=== PATIENT | male | born 1955 | race Caucasian/White ===

== ENCOUNTER → 2019-12-10 08:45 | Outpatient (BNVA) | payer OTHER, SELFPAY | PROVIDERS: Referring Provider Dermatology; Visit Provider Dermatology | DX: B07.8 Other viral warts (principal); D22.9 Melanocytic nevi, unspecified; D23.9 Other benign neoplasm of skin, unspecified | CPT/HCPCS: 17000; 99203 ==

== ENCOUNTER 2020-09-05 02:49 | Inpatient (IN) | payer OTHER, MEDICARE, SELFPAY ==
[2020-09-05] VITALS (79 sets, daily range): BP systolic 100–158; BP diastolic 62–127; PULSE 58–92; RESP 12–25; TEMP 36.7–37.1; O2SAT 89–100; BMI 28.0
--- NOTE | 2020-09-05 03:28 | XRR_ITS ---
PROCEDURE INFORMATION: Exam: XR Chest Exam date and time: 09/05/2020 3:30 AM Age: 65 years old Clinical indication: Chest pressure; Patient HX: Upper back pain with radiation into chest. ; Additional info: Chest pain TECHNIQUE: Imaging protocol: XR of the chest. Views: 1 view. COMPARISON: No relevant prior studies available. FINDINGS: Lungs: There are increased interstitial opacities present in the lower hemithoraces bilaterally and mild indistinctness of the pulmonary vasculature seen, findings that could represent pulmonary edema. Superimposed bilateral basilar interstitial pneumonia cannot be entirely excluded. Pleural spaces: Unremarkable. No pleural effusion. No pneumothorax. Heart/Mediastinum: Unremarkable. No cardiomegaly. Bones/joints: Unremarkable. XR/XR chest 1V portable [id number] IMPRESSION: Indistinctness of the pulmonary vasculature with increased interstitial opacities in the lower hemithoraces, findings that may represent pulmonary edema. Superimposed interstitial pneumonia cannot be entirely excluded. A
--- NOTE | 2020-09-05 03:28 | ECG_ITS ---
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 Measurements Intervals [place] Rate: 73 P: 64 [place]: 143 QRS: 9 QRSD: 88 T: 62 QT: 377 QTc: 417 Interpretive Statements SINUS RHYTHM WITH MARKED SINUS ARRHYTHMIA LOW QRS VOLTAGE IN PRECORDIAL LEADS [QRS DEFLECTION < 1.0 mV IN CHEST LEADS] POSSIBLE RIGHT VENTRICULAR CONDUCTION DELAY [RSR (QR) IN V1/V2] POSSIBLE SEPTAL MYOCARDIAL INFARCTION , OF INDETERMINATE AGE [30 ms Q WAVE IN V1/V2] No previous ECG available for comparison Electronically Signed On 09-05-2020 19:15:08 CDT by Khris Yen M.D. [id number] f
--- NOTE | 2020-09-05 03:42 | ED_ITS ---
HPI - Back Pain/Injury General: Chief Complaint: Back Pain/Injury Stated Complaint: UPPER BACK PAIN Time Seen by Provider: 09/05/20 03:20 Source: patient Mode of arrival: ambulatory History of Present Illness: HPI Narrative: 65-year-old male woke up at 2am in a cold sweat, nauseous, with pain in the middle of his back, between his shoulder blades. No shortness of breath. Pain is constant, deep, not affected by movement or breathing. Back his observed him to be diaphoretic, pale. She gave him a dose of Tylenol. He has never had symptoms like this in the past. Denies any history of hypertension, CAD, CVA. Denies any family history of CAD. Currently rates pain as 7 out of 10, MD elicited complaint: back pain Onset (ago): hour(s) Timing: constant Associated symptoms: Reports chills and nausea; Deny abdominal pain, dysuria, syncope or vomiting Review of Systems General: Reports: 10 or more systems reviewed and unremarkable except in HPI and below Const: Reports: chills and diaphoresis Eyes: Denies: change in vision or blurry vision Card: Denies: chest pain, irregular heart rhythm, edema, lightheadedness or syncope Resp: Denies: dyspnea, productive cough or non-productive cough GI: Reports: nausea; Denies: abdominal pain or vomiting : Denies: flank pain, difficulty urinating or dysuria Musc: Reports: back pain; Denies: extremity pain or extremity swelling Skin/Breast: Denies: rash, pruritus or erythema Neuro: Denies: headache(s) or numbness in extremities PFSH ED PFSH: Medical History No pertinent family history Surgical History History of knee surgery Social History Smoking and tobacco status: never smoked Alcohol intake: never History of recent travel: No Physical Exam Const: COMMON NORMALS: average body habitus, patient oriented x3 and alert GENERAL APPEARANCE: well developed, ill appearing and diaphoretic; not in distress and no odor of alcohol detected ORIENTATION/CONSCIOUSNESS: Yes awake, Yes oriented to person and Yes oriented to place HENMT: COMMON NORMALS: normocephalic and atraumatic HEAD & SCALP: normocephalic and atraumatic Neck/C-Spine: COMMON NORMALS: full ROM, no lymphadenopathy and no JVD Resp: COMMON NORMALS: normal respiratory effort; negative for No use of accessory muscles EFFORT & INSPECTION: No abnormal respiratory pattern and No tachypneic Cardio: COMMON NORMALS: no JVD GI: COMMON NORMALS: Normal to inspection, nondistended, normoactive bowel sounds present, Soft to palpation, non-tender and No hepatosplenomegaly present PALPATION: Yes Soft to palpation and Yes No hepatosplenomegaly present : COMMON NORMALS: Yes no CVA tenderness BLADDER/KIDNEY EXAM: Yes no CVA tenderness Back/Pelvis: COMMON NORMALS: no CVA tenderness and no thoracic nor lumbar tenderness Extremity: GENERAL: No cyanosis, No edema, No mottling and Yes pallor Neuro: COMMON NORMALS: patient oriented x3 SENSORIUM/ORIENTATION: Yes alert, Yes oriented to person and Yes oriented to place Skin: COMMON NORMALS: no rashes or lesions noted, no wounds and turgor normal GENERAL SKIN EXAM: no rashes or lesions noted and turgor normal Course Vital Signs: Vital signs: Vital Signs Temperature 98.0 F 09/05/20 02:55 Pulse Rate 82 09/05/20 06:27 Respiratory Rate 16 09/05/20 06:27 Blood Pressure 124/80 09/05/20 06:27 Pulse Oximetry 97 09/05/20 06:27 MDM - Back Pain/Injury MDM Narrative: Medical decision making narrative: 65-year-old male woke up overnight with upper back pain, diaphoresis, nausea. Shortly after arriving, pain started radiating to the front of his chest as well. Primary differential includes aortic dissection, STEMI, ACS, ST depression in II, AVF, V5,V6- slightly improved on repeat EKG at 15min no acute ST elevations. central vasc congestion on xray Give ASA 324, morphine, zofran CTA chest: Negative for dissection or acute PE Initial troponin 26, 2-hour repeat pending HEART score=7, high risk- will recommend admission for further workup. Discussed case with Dr. Stallworth, hospitalist, he accepts the admission. Start Lovenox, 1 mg/kg SC Differential Diagnosis: Differential diagnosis back pain/injury: Likely thoracic back pain Lab Data: Labs: Lab Results 09/05/20 09/05/20 09/05/20 Range/Units 03:42 03:42 03:42 WBC 6.0 (4.0-10.0) 10^3/ uL RBC 5.37 H (4.1-5.3) 10^6/u L Hgb 16.1 (11.7-16.6) g/dL Hct 47.8 (42.0-52.0) % MCV 89.0 (80-94) fL MCH 30.0 (28.0-34.0) pg MCHC 33.7 (30.0-36.0) g/dL RDW 12.4 (12.1-15.1) % Plt Count 172 (130-400) 10^3/c mm MPV 9.9 (7.4-10.4) fL Neut % (Auto) 53.0 % Lymph % (Auto) 36.9 % [place] % (Auto) 7.0 % Eos % (Auto) 2.2 % Baso % (Auto) 0.7 % Neut # (Auto) 3.21 (1.8-7.7) 10^3/u L Lymph # (Auto) 2.2 (0.8-4.8) 10^3/u L [place] # (Auto) 0.4 (0.2-0.9) 10^3/u L Eos # (Auto) 0.1 (0.0-0.8) 10^3/u L Baso # (Auto) 0.0 (0.0-0.1) 10^3/u L Nucleated RBC % (a uto) 0 % Nucleated RBCs # 0.0 /100WBC D-Dimer <= 0.27 (0-0.59) ug/mIFE U Sodium 136 (136-145) mmol/L Potassium 3.9 (3.5-5.1) mmol/L Chloride 99 (98-107) mmol/L Carbon Dioxide 27 (22-29) mmol/L Anion Gap 13.9 (5-19) BUN 14 (8-23) mg/dL Creatinine 1.0 (0.7-1.2) mg/dL GFR Calculation 75.0 L (90-130) mL/min Glucose 143 H (65-115) mg/dL Calculated Osmolal ity 285 (285-295) mOsm/k g Calcium 8.8 (8.5-10.5) mg/dL Total Bilirubin 0.2 (0.15-1.2) mg/dL AST 30 (0-40) U/L ALT 37 (0-41) U/L Alkaline Phosphata se 91 (40-130) IU/L Troponin T Baselin e (0-15) ng/L Troponin T 120 Min [place] (0-15) ng/L Delta Troponin T (0-10) ABS# NT-Pro-B Natriuret Pep 61 (0-125) pg/mL Total Protein 6.9 (6.6-8.7) g/dL Albumin 4.5 (3.5-5.2) g/dL Globulin 2.4 (1.3-4.6) g/dL Urine Color (Yellow) Urine Appearance (CLEAR) Urine pH (5-7) Ur Specific Gravit y (1.005-1.030) Urine Protein (Negative) Urine Glucose (UA) (Normal) Urine Ketones (Negative) Urine Blood (Negative) Urine Nitrate (Negative) Urine Bilirubin (Negative) Prot Sulfosalicyli c Acd (Negative) Urine Urobilinogen (Negative) mg/dL Ur Leukocyte Starla ase (Negative) 09/05/20 09/05/20 09/05/20 Range/Units 03:42 04:56 05:28 WBC (4.0-10.0) 10^3/ uL RBC (4.1-5.3) 10^6/u L Hgb (11.7-16.6) g/dL Hct (42.0-52.0) % MCV (80-94) fL MCH (28.0-34.0) pg MCHC (30.0-36.0) g/dL RDW (12.1-15.1) % Plt Count (130-400) 10^3/c mm MPV (7.4-10.4) fL Neut % (Auto) % Lymph % (Auto) % [place] % (Auto) % Eos % (Auto) % Baso % (Auto) % Neut # (Auto) (1.8-7.7) 10^3/u L Lymph # (Auto) (0.8-4.8) 10^3/u L [place] # (Auto) (0.2-0.9) 10^3/u L Eos # (Auto) (0.0-0.8) 10^3/u L Baso # (Auto) (0.0-0.1) 10^3/u L Nucleated RBC % (a uto) % Nucleated RBCs # /100WBC D-Dimer (0-0.59) ug/mIFE U Sodium (136-145) mmol/L Potassium (3.5-5.1) mmol/L Chloride (98-107) mmol/L Carbon Dioxide (22-29) mmol/L Anion Gap (5-19) BUN (8-23) mg/dL Creatinine (0.7-1.2) mg/dL GFR Calculation (90-130) mL/min Glucose (65-115) mg/dL Calculated Osmolal ity (285-295) mOsm/k g Calcium (8.5-10.5) mg/dL Total Bilirubin (0.15-1.2) mg/dL AST (0-40) U/L ALT (0-41) U/L Alkaline Phosphata se (40-130) IU/L Troponin T Baselin e 26 H (0-15) ng/L Troponin T 120 Min [place] 46.60 H (0-15) ng/L Delta Troponin T 20.60 H* (0-10) ABS# NT-Pro-B Natriuret Pep (0-125) pg/mL Total Protein (6.6-8.7) g/dL Albumin (3.5-5.2) g/dL Globulin (1.3-4.6) g/dL Urine Color Straw (Yellow) Urine Appearance Clear (CLEAR) Urine pH 8 H (5-7) Ur Specific Gravit y 1.005 (1.005-1.030) Urine Protein Neg (Negative) Urine Glucose (UA) Norm (Normal) Urine Ketones Negative (Negative) Urine Blood Neg (Negative) Urine Nitrate Negative (Negative) Urine Bilirubin Neg (Negative) Prot Sulfosalicyli c Acd Negative (Negative) Urine Urobilinogen Norm (Negative) mg/dL Ur Leukocyte Starla ase Negative (Negative) Discharge Plan Discharge Patient Disposition: Admitted As Inpatient Admit Provider: Jamia Stallworth Clinical Impression: Thoracic back pain, Chest pain, Abnormal ECG, Elevated troponin I measurement Condition: Stable Coding Level of Care Code ED Masking Machine Feeder for Chg Fwd Exam Comprehensive
[2020-09-05] MEDS: aspirin 81 mg Chew Tablet 324 MG PO (03:47)
[2020-09-05 03:48] LABS: Basophils % 0.7 %; Eosinophils # 0.1 10^3/uL (0.0-0.8); Eosinophils % 2.2 %; Hematocrit 47.8 % (42.0-52.0); Hemoglobin 16.1 g/dL (11.7-16.6); Lymphocytes # 2.2 10^3/uL (0.8-4.8); Lymphocytes % 36.9 %; Mean Corpuscular HGB Conc 33.7 g/dL (30.0-36.0); Mean Platelet Volume 9.9 fL (7.4-10.4); Monocytes # 0.4 10^3/uL (0.2-0.9); Neutrophils # 3.21 10^3/uL (1.8-7.7); Nucleated Red Blood Cells % 0 %; Platelet Count 172 10^3/cmm (130-400); Red Blood Count 5.37 10^6/uL (4.1-5.3); Red Cell Distribution Width 12.4 % (12.1-15.1)
--- NOTE | 2020-09-05 03:58 | CTR_ITS ---
PROCEDURE INFORMATION: Exam: CTA Chest With Contrast Exam date and time: 09/05/2020 4:00 AM Age: 65 years old Clinical indication: Chest pain; Patient HX: Upper back pain with anterior radiation. ; Additional info: Upper back pain, R/O dissection TECHNIQUE: Imaging protocol: Computed tomographic angiography of the chest with contrast. 3D rendering (Not supervised by radiologist): MIP and/or 3D reconstructed images were created by the technologist. Radiation optimization: All CT scans at this facility use at least one of these dose optimization techniques: automated exposure control; mA and/or kV adjustment per patient size (includes targeted exams where dose is matched to clinical indication); or iterative reconstruction. Contrast material: OMNI 350; Contrast volume: 95 ml; Contrast route: INTRAVENOUS (IV); COMPARISON: CR (CHEST, ) 09/05/2020 3:33 AM RADIATION DOSE METRICS: Total DLP (mGy-cm): 1251.55 FINDINGS: Pulmonary arteries: Normal. No pulmonary emboli. Aorta: Unremarkable. No aortic aneurysm. No aortic dissection. Lungs: An azygos lobe is seen. Minimal hazy opacities are seen predominately in the dependent portion of the lungs compatible with dependent atelectasis. There are some increased septal markings seen bilaterally and mild prominence of the pulmonary vasculature, findings that may represent pulmonary edema. Pleural spaces: Unremarkable. No pneumothorax. No pleural effusion. Heart: Calcifications are seen within the coronary arteries. Lymph nodes: Unremarkable. No enlarged lymph nodes. Bones/joints: Unremarkable. No acute fracture. Soft tissues: Unremarkable. CT/CT angio chest [id number] IMPRESSION: 1. There is no evidence for pulmonary emboli. 2. There is no evidence for aneurysmal dilatation, dissection or extravasation of the thoracic aorta. 3. Mild prominence of the pulmonary vasculature and increased septal markings could represent pulmonary edema. Radiation Dose CTDIVOL = (mGy): DLP = 1251.55 (mGy-cm)
[2020-09-05 04:09] LABS: Troponin(5th) Baseline 26 ng/L (0-15)
[2020-09-05] MEDS: morphine 4 mg/mL SDV 1 mL 6 MG IVP (04:12)
[2020-09-05] MEDS: ondansetron 2 mg/ML SDV 2 mL 4 MG IVP (04:12)
[2020-09-05 04:14] LABS: Alanine Aminotransferase 37 U/L (0-41); Albumin Level 4.5 g/dL (3.5-5.2); Alkaline Phosphatase 91 IU/L (40-130); Anion Gap 13.9 (5-19); Aspartate Amino Transferase 30 U/L (0-40); Blood Urea Nitrogen 14 mg/dL (8-23); Calcium 8.8 mg/dL (8.5-10.5); Carbon Dioxide 27 mmol/L (22-29); Chloride 99 mmol/L (98-107); Globulin 2.4 g/dL (1.3-4.6); Glucose 143 mg/dL (65-115); NT Pro B Type Natriuretic Pept 61 pg/mL (0-125); Osmolality Calculated 285 mOsm/kg (285-295); Potassium 3.9 mmol/L (3.5-5.1); Sodium 136 mmol/L (136-145); Total Bilirubin 0.2 mg/dL (0.15-1.2); Total Protein 6.9 g/dL (6.6-8.7)
[2020-09-05] MEDS: iohexol 350 mg/mL 100 mL Btl IV (04:30)
[2020-09-05 04:44] LABS: D Dimer <= 0.27 ug/mIFEU (0-0.59)
[2020-09-05 05:08] LABS: Add Urine Microscopic? NO; Charge for UA Resulting for Rev
[2020-09-05 05:15] LABS: Bilirubin Urine Neg (Negative); Blood Urine Neg (Negative); Glucose Urine UA Norm (Normal); Ketones Urine Negative (Negative); Leukocyte Esterase Urine Negative (Negative); Nitrate Urine Negative (Negative); Protein Urine Neg (Negative); Specific Gravity, Urine 1.005 (1.005-1.030); Sulfosalicylic Acid Urine Negative (Negative); Urine Appearance Clear (CLEAR); Urine Color Straw (Yellow); Urobilinogen Urine Norm (Negative); pH Urine 8 (5-7)
--- NOTE | 2020-09-05 05:28 | ECG_ITS ---
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 Measurements Intervals [place] Rate: 80 P: 52 [place]: 144 QRS: -15 QRSD: 104 T: 88 QT: 366 QTc: 423 Interpretive Statements SINUS RHYTHM POSSIBLE LEFT ATRIAL ENLARGEMENT [-0.1mV P WAVE IN V1/V2] INCOMPLETE RIGHT BUNDLE BRANCH BLOCK [90+ ms QRS DURATION, TERMINAL R IN V1/V2, 40+ ms S IN I/aVL/V4/V5/V6] SEPTAL MYOCARDIAL INFARCTION [40+ ms Q WAVE IN V1/V2], OF INDETERMINATE AGE Compared to ECG 09/05/2020 03:51:14 Incomplete right bundle-branch block now present Sinus arrhythmia no longer present Myocardial infarct finding still present Electronically Signed On 09-14-2020 12:29:46 CDT by Frieda Deng M.D. [id number]
[2020-09-05] MEDS: enoxaparin 100 mg/mL Syringe 90 MG SUBCUT (06:19)
[2020-09-05] MEDS: nitroglycerin 1 gm/inch oint Pkt 0.5 INCH TOPICAL (08:07)
[2020-09-05] MEDS: nitroglycerin 0.4 mg sublingual Tablet SUBLINGUAL ×2 (08:11→08:21)
--- NOTE | 2020-09-05 08:27 | PM.HP ---
Providers/Chief Complaint Admitting Physician: Jamia Stallworth MD Chief Complaint: UPPER BACK PAIN History of Present Illness Raymundo Egan is a 65 year old male who reports he had chest and back discomfort, back worse than chest occurring this morning around 2 AM waking him from sleep. He reports it is a deep discomfort. He cannot describe it otherwise. It was associated with diaphoresis, and some nausea. He did not have any emesis. He has not been sick lately. He has had never had any exertional chest discomfort. He reports no history of past heart disease. He had first wondered if he was having back discomfort from moving some boxes but this is not a discomfort he has had before. He had an aspirin in the emergency department, some morphine, a full dose of anticoagulation, and perhaps a nitroglycerin. While briefly on the second floor he had some sublingual nitroglycerin but has yet to respond. Review of Systems General: Reports: 10 or more systems reviewed and unremarkable except in HPI and below Const: Denies: fever(s) Eyes: Denies: change in vision ENMT: Denies: throat pain Card: Reports: chest pain Resp: Denies: dyspnea GI: Reports: nausea; Denies: abdominal pain : Denies: flank pain Musc: Denies: neck pain Skin/Breast: Denies: rash Neuro: Denies: headache(s) Psych: Denies: anxiety Endo: Denies: polyuria Scott/Lymph: Denies: easy bruising All/Imm: Denies: urticaria Medications/Allergies Home Medications Medication Instructions Recorded Confirmed Last Taken Type No Known Home Medications 12/10/19 04/10/20 Unknown History Allergies Allergy/AdvReac Type Severity Reaction Status Date / Time No Known Allergies Allergy Verified 04/10/20 09:29 PFSH Acute PFSH: Medical History No pertinent family history Surgical History History of knee surgery Family History (Updated 09/05/20 @ 08:30 by Luis Manuel Galaviz MD) Other Hypertension Social History Smoking and tobacco status: never smoked Alcohol intake: never History of recent travel: No Supplemental PFSH Information: No family history of heart disease Vitals/I&O/Wt Last Vital Signs Temp 98.0 F 09/05/20 02:55 Pulse 73 09/05/20 08:21 Resp 16 09/05/20 06:27 BP 130/73 09/05/20 08:21 Pulse Ox 97 09/05/20 06:27 Weight last 48 hrs Weight 86.183 kg Physical Exam Narrative: EXAM NARRATIVE: General exam is obvious discomfort, moving frequently in bed HEENT: Pupils equally round. Oropharynx clear. Neck is supple no lymphadenopathy or thyromegaly Cardiovascular regular rate and rhythm without murmur, no S3 or S4 Lungs clear no wheezing or crackles Abdomen is soft with positive bowel sounds. No obvious organomegaly was deferred Extremities no cyanosis clubbing or edema, cap refill brisk Skin no rash Neuro no obvious focal deficits Data : 09/05/20 03:42 09/05/20 03:42 Other data: Dimer was negative. Initial troponin XX 6, with repeat 46 LFTs normal Urinalysis negative CTA no pulmonary emboli, no aneurysm, mild prominence pulmonary vasculature Chest x-ray cannot rule out mild pulmonary edema Initial EKG demonstrates sinus rhythm, normal axis, ST depression inferior and lateral. Repeat EKG similar but with T wave inversion aVL A&P Assessment and plan (1) Chest pain: He has significant chest discomfort concerning for unstable angina, in the face of a non-ST elevation myocardial infarction. He has received therapeutic Lovenox in the emergency department around 6 AM. We will continue. He has received an aspirin, will continue Defer Plavix loading to cardiology Keep n.p.o. as he is having continued pain Nitroglycerin drip Statin Note that his CTA did not have a pulmonary embolism. He did not have an aortic aneurysm. Check TSH Check echocardiogram Status: Acute Qualifiers: Chest pain type: unspecified Qualified Code(s): R07.9 - Chest pain, unspecified Additional A&P Information Full code Lovenox will suffice for DVT prophylaxis Attestations Medical Necessity Statement*: 2 midnight stay for evaluation and treatment of chest discomfort consistent with non-ST elevation myocardial infarction Time Spent in Patient Care: Greater than 35 minutes Coding Level of Care Code Acute Library Consultant for uday Pastor Diagnoses Chest pain R07.9 Chest pain type: unspecified
[2020-09-05] MEDS: morphine 4 mg/mL SDV 1 mL 2 MG IVP ×2 (08:28→17:31)
--- NOTE | 2020-09-05 08:32 | USCV_ITS ---
Raymundo Egan Age: 65 Gender: M : 1955 Exam Date: 09/05/2020 14:29 Ordering Phys: Luis Manuel Galaviz MD Technologist: Exam [place] [facility] [place]ication: NSTEMI BP: 142 / 84 HR: 81 Rhythm: Sinus Technical Quality: Fair MEASUREMENTS (Male / Female) Normal Values 2D ECHO LV Diastolic Diameter PLAX 4.2 cm 4.2 - 5.9 / 3.9 - 5.3 cm LV Systolic Diameter PLAX 2.6 cm IVS Diastolic Thickness 0.9 cm 0.6 - 1.0 / 0.6 - 0.9 cm IVS Systolic Thickness 1.0 cm LVPW Diastolic Thickness 1.0 cm 0.6 - 1.0 / 0.6 - 0.9 cm LVPW Systolic Thickness 1.1 cm LVOT Diameter 2.0 cm LV Ejection Fraction 2D Teich 66.7 % LV Ejection Fraction MOD 2C 43.0 % LV Ejection Fraction 2C AL 41.4 % LA Diameter 4.1 cm LA Width 3.4 cm LA Height 4.3 cm RA Width 2.5 cm RA Height 3.6 cm Aorta at Sinotubular Diameter 2.9 cm M-MODE LV Diastolic Diameter MM 4.9 cm 4.2 - 5.9 / 3.9 - 5.3 cm LV Systolic Diameter MM 3.8 cm LV Ejection Fraction MM Teich 46.5 % IVS Diastolic Thickness MM 0.7 cm 0.6 - 1.0 / 0.6 - 0.9 cm IVS Systolic Thickness MM 1.0 cm LVPW Diastolic Thickness MM 1.2 cm 0.6 - 1.0 / 0.6 - 0.9 cm LVPW Systolic Thickness MM 1.5 cm RV Diastolic Diameter MM 1.2 cm Aortic Annulus Diameter 3.5 cm LA Ao Ratio MM 1.6 MV E Point Septal Separation 1.9 cm DOPPLER AV Peak Velocity 108.0 cm/s LVOT Peak Velocity 99.0 cm/s AV Area Cont Eq vti 3.1 cm squared AV Area Cont Eq pk 3.0 cm squared MV Area PHT 5.0 cm squared Mitral E to A Ratio 0.8 MV E' Velocity 34.0 cm/s Mitral E to MV E' Ratio 9.6 Mitral E to LV E' Lateral Ratio 7.6 Mitral E to LV E' Septal Ratio 13.0 TR Peak Velocity 210.0 cm/s TR Peak Gradient 17.6 mmHg TV Peak E Velocity 76.0 cm/s Right Atrial Pressure 3.0 mmHg Pulmonary Artery Systolic Pressu 20.6 mmHg FINDINGS Left Ventricle Normal left ventricular cavity size. Moderately decreased left ventricular systolic function. Left ventricular ejection fraction is estimated at 45 %. There appeared to be anterior, septal and apical wall hypokinesis.Grade I/IV diastolic dysfunction (abnormal relaxation filling pattern), normal to mildly elevated filling pressures. Right Ventricle The right ventricle is normal in size and function. Right Atrium The right atrium is normal in size. Left Atrium The left atrium is normal in size. Mitral Valve Structurally normal mitral valve without significant stenosis or prolapse. There is no mitral regurgitation. Aortic Valve Structurally normal aortic valve without significant sclerosis or stenosis. There is no aortic regurgitation. Tricuspid Valve Structurally normal tricuspid valve without significant stenosis or regurgitation. Pulmonary artery systolic pressure is normal. Pulmonic Valve Structurally normal pulmonic valve without significant stenosis. There is no pulmonic regurgitation. Pericardium Normal pericardium without effusion. Aorta Normal ascending aorta dimension. CONCLUSIONS 1-Normal left ventricular cavity size. Moderately decreased left ventricular systolic function. Left ventricular ejection fraction is estimated at 45 %. There appeared to be anterior, septal and apical wall hypokinesis.Grade I/IV diastolic dysfunction (abnormal relaxation filling pattern), normal to mildly elevated filling pressures. 2-There is no pericardial effusion. 3-No significant valve abnormalities. 4-Pulmonary artery systolic pressure is within normal limits. 5-Right atrial pressure is around 5 mm of mercury. 6-There are no prior echocardiogram studies to compare. Jamia Teixeira MD (Electronically Signed) Final Date: 06 Sep 2020 18:39 S
--- NOTE | 2020-09-05 08:42 | XACV_ITS ---
Exam Room: [facility] Ht: 175 cm Wt: 86 kg BSA: 2.07 m2 Gender: Male : 1955 Any Known Allergies: No known allergies Exam Priority: Routine Procedure(s): Procedure Description: Diagnostic procedure Procedure Description: PCI procedure Procedure Description: Left Heart Catheterization Procedure Description: Drug Eluting Coronary Stent Procedure Description: PTCA Procedure Description: Coronary Angiography Diagnostic Findings * Left Main has no disease. * Circumflex has no disease. * Proximal Left Anterior Descending: total occlusion, MARSHAL: 0 flow. * Mid Left Anterior Descending: obstructive 70% stenosis, MARSHAL: 0 flow. * Distal Right Coronary Artery: significant 75% stenosis, MARSHAL: 3 flow. * Third Obtuse Marginal Branch Segment: severe 90% stenosis, MARSHAL: 3 flow. * Coronary angiography shows right dominance. Interventional Findings * Proximal Left Anterior Descendin% stenosis treated with a AB MINI TREK 2.00X20 RX BALLOON, MDBeba Abdi HEIDY 3.0X26 MING, and ENZO CEE EUPHORA RX [id number] BALLOON. 0% residual stenosis, MARSHAL: 3 flow. * Mid Left Anterior Descendin% stenosis treated with a AB MINI TREK 2.00X20 RX BALLOON. 10% residual stenosis, MARSHAL: 3 flow. * Distal Right Coronary Artery: 75% stenosis treated with a AB TREK 3.00X20 RX BALLOON, and ENZO Abdi HEIDY 4.0X26 MING. 0% residual stenosis, MARSHAL: 3 flow. Conclusions 1. There is total occlusion coronary artery disease with two vessel disease. 2. Proximal Left Anterior Descending was treated with a Balloon, Drug Eluting Stent, and Balloon. 3. Mid Left Anterior Descending was treated with a Balloon. 4. Distal Right Coronary Artery was treated with a Balloon, and Drug Eluting Stent. Recommendations * Continue current medical management and risk factor modification. Pressures Phase:Rest AO : 91 / 63 ( 77 ) @ 8:10:00 AM 343 / 297 ( 273 ) @ 8:21:00 AM 83 / 63 ( 74 ) @ 8:35:00 AM Clinical Evaluation EBL: 5mL-10mL Procedural Details Procedure Consent Obtained. Pre-Procedure Time Out. Identified patient by full name and date of as verbalized by the patient/guarantor. Does the consent match the physician's order: Yes. Accurate & Complete Informed Consent: Yes. Inpatient/Outpatient History & Physical on Chart: Yes. If H&P is completed, is and addenduem needed: N/A; If yes, is the addendum complete: N/A. Visualize and Verify Site with Patient/Guarantor: N/A. Relevant Radiology Images available: Yes. Pre-op teaching completed and patient verbalized understanding. The risks, benefits, and alternatives of sedation and/or procedure were discussed by physician. The patient agrees to continue. Procedure started. Correct patient, site and procedure confirmed by cath team. PERRLA. 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 Lungs clear x 5 lobes. IV Site on Arrival: 20 gauge in the right anticubital. IV Site on Arrival: 20 gauge in the left anticubital. IV Fluids: 0.9% NaCl at KVO. 0 mL infused prior to research laboratory technician. Oxygen started at 2liters/min via nasal canula. right groin was prepped with chloroprep then draped in the usual sterile fashion. right radial was prepped with chloroprep then draped in the usual sterile fashion. Physician notified. Baseline sample Acquired. HR: 68 BPM. Physician arrived. Physician scrubbed in. Equipment: 6F - Radial. Cardiac Cath Pack. ACIST Manifold Kit Model BT 2000. Heparinized Saline (2 units/mL), 1000 mL bag. Immediate Pre-Procedure Time Out. Correct Patient: Yes; Correct Procedure: Yes; Correct Site: Yes; Correct Patient Position: Yes; Correct Supplies: Yes; Dried Flammable Prep: Yes; Blood Products Available: No;. Lidocaine 1% infiltrated to the right radial. Arterial access obtained. A 5 south african TIG catheter in over wire. Multiple views taken of right coronary artery. Catheter redirected to the LCA. Multiple views taken of left coronary artery. Catheter out. Inventory is MEPS Real-Timegar XT .014 190cm Str. Guidewire. 6 south african XB 3.5 guide catheter was inserted over the wire. AP pads applied to pt. After numerous attempts, the physicians was unable to cross the lesion with the XB 3.5 guide. Guide catheter out. Wire out. Lidocaine 1% infiltrated to the right groin. Arterial access obtained with micropuncture set. 6 south african XB 3.5 guide catheter was inserted over the wire. [place] guidewire was advanced through the guide catheter to lesion in the prox LAD. Inflation number : 1 A AB MINI TREK 2.00X20 RX BALLOON was prepped and advanced across the Prox LAD , then inflated to 18 LAVERNE for 0:18 seconds. Results checked. Inflation number: 1 The AB MINI TREK 2.00X20 RX BALLOON was reinflated across the Mid LAD, to 6 LAVERNE for 0:08 seconds. Results checked. Balloon out. Inflation Number : 2 A MDT R HEIDY 3.0X26 MING -Lot Number# [id number] exp 03-04-22 was prepped and advanced across the Prox LAD. The stent was deployed at 14 LAVERNE for 0:38 seconds. Stent balloon out over wire. Results checked. Inflation number : 3 A MDT NC EUPHORA RX [id number] BALLOON was prepped and advanced across the Prox LAD , then inflated to 8 LAVERNE for 0:28 seconds. Inflation number: 4 The MDT NC EUPHORA RX 3.98Y69BS BALLOON was reinflated across the Prox LAD, to 14 LAVERNE for 0:22 seconds. Inflation number: 5 The MDT NC EUPHORA RX 3.53F56TM BALLOON was reinflated across the Prox LAD, to 8 LAVERNE for 0:18 seconds. Stent balloon out over wire. Results checked. Wire out. Guide catheter out. nitro off. 6 south african JR 4 guide catheter was inserted over the wire. [place] guidewire was advanced through the guide catheter to lesion in the mid RCA. Inflation number : 1 A AB TREK 3.00X20 RX BALLOON was prepped and advanced across the Mid RCA , then inflated to 16 LAVERNE for 0:15 seconds. Balloon out. Results checked. Inflation Number : 2 A ENZO Abdi HEIDY 4.0X26 MING -Lot Number# [id number] prepped and advanced across the Mid RCA. The stent was deployed at 16 LAVERNE for 0:36 seconds. Stent balloon out over wire. Results checked. Results checked. Wire out. Guide catheter out. A TR Band was successful obtaining hemostatsis at the Right Radial artery insertion site. A Suture was successful obtaining hemostatsis at the Right Femoral artery insertion site. Sheath(s) sutured into position with 2-0 silk and sterile 4x4's and Op-site applied over the site. No oozing or signs and symptoms of hematoma noted. PERRLA. 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 No VTE prophylaxis required. Medication's Wasted: Other = 1 versed mg. Medication's Wasted: Lidocaine 1% = 8 mL. Medication's Wasted: Nitro = 49.6 mg. Medication's Wasted: Heparin = 4000 units. Total IV fluids: 100 mL. Fluoro: 15:40. Contrast type used: Omnipaque 300 mgI/mL, 500 mL bottle. [id number]. PCI Indication: NSTE. Post-op diagnosis: total occluded Prox Lad significant Mid Rca. Complications: none. Estimated blood loss: 5mL-10mL. Procedure completed. Patient transferred by bed to ICU. Vital chart was stopped. Access Site Site: Right Radial artery Sheath Size: 6 Fr Hemostasis Method: TR Band Hemostasis Success: Successful Site: Right Femoral artery Sheath Size: 6 Fr Hemostasis Method: Suture Hemostasis Success: Successful Procedure Medications Start: 9:00 AM Stop: 9:00 AM Medication: Versed Amount: 1 mg Route: I.V. Start: 9:00 AM Stop: 9:00 AM Medication: Fentanyl Amount: 50 mcg Route: I.V. Start: 9:07 AM Stop: 9:07 AM Medication: Nitrogylcerin Amount: 200 mcg Route: I.A. Start: 9:07 AM Stop: 9:07 AM Medication: Nitrogylcerin Amount: 20 mcg Route: I.V. drip Start: 9:21 AM Stop: 9:21 AM Medication: Versed Amount: 1 mg Route: I.V. Start: 9:21 AM Stop: 9:21 AM Medication: Fentanyl Amount: 50 mcg Route: I.V. Start: 9:31 AM Stop: 9:31 AM Medication: Aggrastat 12.5 mg/250 mL Amount: ml Route: I.V. bolus Start: 9:35 AM Stop: 9:35 AM Medication: Aggrastat 12.5 mg/250 mL Amount: 15.5 ml Route: I.V. drip Start: 9:39 AM Stop: 9:39 AM Medication: Versed Amount: 1 mg Route: I.V. Start: 9:52 AM Stop: 9:52 AM Medication: Nitrogylcerin Amount: 200 mcg Route: I.C. I, the attending physician, have reviewed and verified all procedure medications. Yes, all medications given per verbal order Report Signatures Finalized by Jamia Teixeira MD on 09/15/2020 09:55 PM
--- NOTE | 2020-09-05 08:58 | W.PM.OPSUD ---
Surgery/Procedure H&P Update DATE OF PROCEDURE: September 05, 2020 DATE H&P PERFORMED: 09/05/20 H&P UPDATE INFORMATION: I have reviewed H&P completed within last 30 days and I have examined patient prior to procedure PREOP DIAGNOSIS: Acute coronary syndrome PATIENT REASSESSED PRIOR TO SEDATION, WITH NO CHANGE NOTED: Yes PHYSICAL EXAM: alert, oriented x 3, clear to auscultation bilaterally and regular rate & rhythm AIRWAY EVAL/ANESTHESIA PLAN: ASA II, Risks, benefits & alternatives of sedation and/or procedure discussed and Patient agrees to continue as planned
--- NOTE | 2020-09-05 08:59 | PM.CONSULT ---
Providers/Reason For Consult Consulting Physican/Specialty*: Cardiology Reason for Consult*: ST elevation SC Attending Physician: Luis Manuel Galaviz MD History of Present Illness History of Present Illness Raymundo Egan is a 65 year old male past medical history significant for hypelipidemia but no other risk factors for coronary artery disease presented with central chest pain radiating back in between scapula along with shortness of breath and diaphoresis. Twelve-lead EKG was noted to have anteroseptal T wave suggestive of possible ischemia. Blood work-up showed mildly elevated troponin . Patient was admitted overnight with suspicion of acute coronary syndrome. He was started on Lovenox aspirin and statin. Due to recurrent nature of chest pain relieved with nitroglycerin I have been asked to see the patient. I immediately saw the patient with Dr. Galaviz in the ICU as patient was transferred from second floor. Patient appeared to be diaphoretic with persistent chest pain therefore we decided to take him to the Flight Control Specialist I have explained him all risk benefit and updated for the procedure he understand the risk of major minor bleed urgent emergent surgery stroke arrhythmia and worse case scenario . We will proceed with angiogram. Further plan will be devised as per progress of the patient Review of Systems General: Reports: 10 or more systems reviewed and unremarkable except in HPI and below Const: Reports: chills and diaphoresis; Denies: fever(s) Eyes: Denies: change in vision or blurry vision ENMT: Denies: throat pain Card: Reports: chest pain; Denies: irregular heart rhythm, edema, lightheadedness or syncope Resp: Denies: dyspnea, productive cough or non-productive cough GI: Reports: nausea; Denies: abdominal pain or vomiting : Denies: flank pain, difficulty urinating or dysuria Musc: Reports: back pain; Denies: neck pain, extremity pain or extremity swelling Skin/Breast: Denies: rash, pruritus or erythema Neuro: Denies: headache(s) or numbness in extremities Psych: Denies: anxiety Endo: Denies: polyuria Scott/Lymph: Denies: easy bruising All/Imm: Denies: urticaria Meds/Allergies Home Medications and Allergies Home Medications Medication Instructions Recorded Confirmed Last Taken Type No Known Home Medications 12/10/19 09/06/20 Unknown History Allergies Allergy/AdvReac Type Severity Reaction Status Date / Time No Known Allergies Allergy Verified 04/10/20 09:29 Current Medications Current Medications Generic Name Dose Route Start Last Admin Trade Name Freq PRN Reason Stop Dose Admin Morphine Sulfate 2 mg 09/05/20 08:24 09/05/20 08:28 Morphine 4 Mg/Ml Sdv 1 Ml IVP 2 mg Q2H PRN Administration SEVERE PAIN Nitroglycerin 0.5 inch 09/05/20 08:15 09/05/20 08:07 Nitroglycerin 1 Gm/Inch Oint Pkt TOPICAL 0.5 inch Q6H RADHA Administration Nitroglycerin 0.4 mg 09/05/20 08:08 09/05/20 08:21 Nitroglycerin 0.4 Mg Sublingual Tablet SUBLINGUAL 1 tab Q5M PRN Administration CHEST PAIN PFSH Acute PFSH: Medical History No pertinent family history Surgical History History of knee surgery Family History (Updated 09/05/20 @ 08:30 by Luis Manuel Galaviz MD) Other Hypertension Social History Smoking and tobacco status: never smoked Alcohol intake: never History of recent travel: No Supplemental PFSH Information: No family history of heart disease Vitals/I&O/Wt Last Vital Signs Temp 98.0 F 09/05/20 02:55 Pulse 73 09/05/20 08:21 Resp 18 09/05/20 08:28 BP 100/62 09/05/20 08:32 Pulse Ox 97 09/05/20 06:27 Weight last 48 hrs Weight 190 lb Physical Exam Narrative: EXAM NARRATIVE: GENERAL: Patient is alert, awake and oriented x3. Mild distress, diaphoresis NECK: No jugular vein distension. HEENT: No cyanosis. No icterus. No pallor. HEART: Regular S1 and S2. No murmur, rub or gallop. LUNGS: Clear to auscultate bilaterally. ABDOMEN: Soft, nontender and nondistended. Positive bowel sounds. No guarding, rebound or tenderness. CENTRAL NERVOUS SYSTEM: Grossly nonfocal. EXTREMITIES: Lower extremities without edema bilaterally. Const: COMMON NORMALS: alert Resp: COMMON NORMALS: clear to auscultation bilaterally AUSCULTATION: clear to auscultation bilaterally Neuro: SENSORIUM/ORIENTATION: Yes alert A&P Assessment and plan (1) Non-ST elevation SC (NSTEMI): We will proceed with left heart cath and PCI if indicated. Further plan will be devised as per progress of the patient Status: Acute (2) Hyperlipidemia LDL goal <70: Patient has been started on statin. We will check lipid profile in the morning Status: Acute Consult Attestations Medical Necessity Statement: Patient require continuation hospitalization for above defined care I am expecting his stay to clear cross more than 2 midnight Coding Level of Care Code New Pt Acute Assistant Professor Nurse Education for Chg Fwd Patient Type New History Comprehensive Exam Comprehensive Medical Decision Making High Complexity Diagnoses Non-ST elevation SC (NSTEMI) I21.4 Hyperlipidemia LDL goal <70 E78.5
[2020-09-05 09:15] LABS: Thyroid Stimulating Hormone 7.49 uIU/mL (0.27-4.20)
--- NOTE | 2020-09-05 09:28 | ECG_ITS ---
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 Measurements Intervals [place] Rate: 64 P: 48 MO: 142 QRS: -14 QRSD: 115 T: 91 QT: 402 QTc: 417 Interpretive Statements SINUS RHYTHM WITH SINUS ARRHYTHMIA POSSIBLE LEFT ATRIAL ENLARGEMENT [-0.1mV P WAVE IN V1/V2] SEPTAL MYOCARDIAL INFARCTION [40+ ms Q WAVE IN V1/V2], OF INDETERMINATE AGE MODERATE T-WAVE ABNORMALITY, CONSIDER ANTERIOR ISCHEMIA [-0.1+ mV T WAVE IN V3/V4] Compared to ECG 09/05/2020 07:32:33 T-wave abnormality now present Possible ischemia now present Incomplete right bundle-branch block no longer present Myocardial infarct finding still present Electronically Signed On 09-05-2020 19:17:40 CDT by Khris Yen M.D. [id number]
--- NOTE | 2020-09-05 09:34 | PC.NURSE ---
upon assessment of patient this am he was very uncomfortable and was complaining of chest pain 7/10. patient had just been transferred from ER to [facility], Dr. Galaviz was on the floor at this time and was notified. Orders were received for SL nitro 0.4mg Q5M PRN, 2mg Morhphine IVP Q2H PRN, nitro paste 0.5inch Q6H. Nitro paste was placed on patients right chest at 0807 0.5inch at 0807 blood pressure 136/84. Bar just received EKG 15 minutes prior to this nurse's assessment. This nurse gave patient nitro 0.4mg SL at 0811 blood pressure was 130/73 at that time. Chest pain was consistent and rated at 7/10, another dose of nitro 0.4mg SL was given at 0821 blood pressure was 127/78. Patient was becoming diaphoretic and labored breathing patient described his pain as unchanged prn dose of morphine was given at 0828 blood pressure 100/62. patient was transferred to ICU 4 at this point, bedside report given to ROD DOYLE.
[2020-09-05 09:42] LABS: Estmated Average Glucose 131; Hemoglobin A1C 6.2 % (4.0-6.0)
[2020-09-05] MEDS: nitroglycerin drip 50 MG/250 ML PREMIX IV (11:40)
[2020-09-05] MEDS: HYDROcodone-acetaminophen 5-325 mg Tablet 1 TAB PO (13:06)
--- NOTE | 2020-09-05 13:11 | ECG_ITS ---
[facility] Test Date: 2020-09-05 Pat Name: Raymundo Egan Department: Room: ICU04 Gender: Male Roll Table Operator: : 1955 Requested By: Jamia Teixeira Order Number: [id number] Michael MD: Khris Yen M.D. Measurements Intervals [place] Rate: 81 P: 56 MI: 139 QRS: 53 QRSD: 93 T: 98 QT: 386 QTc: 449 Interpretive Statements SINUS RHYTHM POSSIBLE LEFT ATRIAL ENLARGEMENT [-0.1mV P WAVE IN V1/V2] SEPTAL MYOCARDIAL INFARCTION [40+ ms Q WAVE IN V1/V2], PROBABLY RECENT Compared to ECG 09/05/2020 08:38:01 Sinus arrhythmia no longer present T-wave abnormality no longer present Possible ischemia no longer present Myocardial infarct finding still present Electronically Signed On 09-05-2020 19:14:22 CDT by Khris Yen M.D. [id number]
--- NOTE | 2020-09-05 13:15 | PC.NURSE ---
Patient having increased back pain et is now cool et clammy. Notified Dr. Teixeira of change. New orders noted et implemented. Will continue to monitor.
--- NOTE | 2020-09-05 13:24 | PC.NURSE ---
Dr. Teixeira at bedside. Updated on patient condition, no new orders at that this time. Will continue to monitor.
[2020-09-05 15:35] LABS: Partial Thromboplastin Time 29.6 SECONDS (23.9-36.7)
[2020-09-05] MEDS: metoprolol tartrate 25 mg Tablet 12.5 MG PO (17:31)
--- NOTE | 2020-09-05 18:00 | PC.NURSE ---
{PTT 29. Femoral artery sheath removed. No hematoma identified. Patient tolerated well. Will continue to monitor.
[2020-09-05] MEDS: atorvastatin 40 mg Tablet PO (21:42)
--- NOTE | 2020-09-05 21:49 | PC.NURSE ---
TR BAND Upon receiving report this evening this nurse was notified that all air had been notified from right radial TR band. Site and vitals were assessed per protocol. Removed TR band at 2130 site clean and dry not complications at this time.
[2020-09-06] VITALS (43 sets, daily range): BP systolic 88–132; BP diastolic 48–86; PULSE 61–98; RESP 12–24; TEMP 36.3–37.4; O2SAT 90–98; BMI 28.2
[2020-09-06 05:40] LABS: Basophils % 0.3 %; Eosinophils % 0.1 %; Hematocrit 45.9 % (42.0-52.0); Hemoglobin 15.6 g/dL (11.7-16.6); Lymphocytes # 1.1 10^3/uL (0.8-4.8); Lymphocytes % 8.7 %; Mean Corpuscular Hemoglobin 30.1 pg (28.0-34.0); Mean Corpuscular Volume 88.4 fL (80-94); Mean Platelet Volume 10.2 fL (7.4-10.4); Monocytes # 1.1 10^3/uL (0.2-0.9); Monocytes % 8.1 %; Neutrophils # 10.84 10^3/uL (1.8-7.7); Neutrophils % 82.6 %; Nucleated Red Blood Cells % 0 %; Platelet Count 174 10^3/cmm (130-400); Red Blood Count 5.19 10^6/uL (4.1-5.3); Red Cell Distribution Width 12.6 % (12.1-15.1); White Blood Count 13.1 10^3/uL (4.0-10.0)
[2020-09-06 06:11] LABS: Anion Gap 14.1 (5-19); Blood Urea Nitrogen 13 mg/dL (8-23); Calcium 8.6 mg/dL (8.5-10.5); Carbon Dioxide 23 mmol/L (22-29); Chloride 99 mmol/L (98-107); Glucose 142 mg/dL (65-115); Osmolality Calculated 277 mOsm/kg (285-295); Potassium 4.1 mmol/L (3.5-5.1); Sodium 132 mmol/L (136-145)
--- NOTE | 2020-09-06 06:25 | PC.NURSE ---
SHIFT SUMMARY Patient had an uneventful night. Patient reported no complaints of pain anywhere all night. Right radial sheath site is covered with the dressing that was on it from the previous shift change and no s/s bleeding or hematoma are observed at the site.
--- NOTE | 2020-09-06 07:15 | PC.NURSE ---
Patient's critical trop level is expected et physician anticipated result.
[2020-09-06 07:16] LABS: Troponin T (5th) Once 4625 ng/L (0-15)
[2020-09-06] MEDS: metoprolol tartrate 25 mg Tablet 12.5 MG PO ×2 (08:35→18:07)
[2020-09-06] MEDS: aspirin 325 mg EC Tablet PO (08:35)
[2020-09-06] MEDS: ticagrelor 90 mg Tablet PO ×2 (08:36→18:07)
--- NOTE | 2020-09-06 12:43 | P.PN_ITS ---
Subjective Subjective: Interval history: No acute event overnight, he is complaining of mild weakness, status post PCI to proximal LAD and mid RCA. Right femoral site looks clean, no hematoma, femoral artery pulsation intact. Medications: Reviewed: Yes Vitals/I&O/Wt Last Vital Signs Temp 97.3 F L 09/06/20 08:00 Pulse 66 09/06/20 11:00 Resp 21 H 09/06/20 11:00 BP 91/69 09/06/20 11:00 Pulse Ox 96 09/06/20 11:00 09/05/20 09/06/20 09/06/20 22:59 06:59 14:59 Intake Total 450 / 450 Output Total 300 / 600 450 / 1050 Balance -300 / -600 -450 / -1050 450 / 450 Weight last 48 hrs Weight 86.636 kg Weight 86.183 kg Physical Exam Const: COMMON NORMALS: patient oriented x3 HENMT: COMMON NORMALS: normocephalic and atraumatic HEAD & SCALP: normocephalic and atraumatic Chest: CHEST: Yes Symmetrical chest wall rise Resp: COMMON NORMALS: clear to auscultation bilaterally AUSCULTATION: clear to auscultation bilaterally Cardio: COMMON NORMALS: regular rate, regular rhythm, S1 normal heart sound present, S2 normal heart sound present, No gallops present (Cardio), No murmurs present (Cardio), No rub (Cardio) and Peripheral pulses 2+ throughout RATE: regular rate RHYTHM: regular rhythm HEART SOUNDS: S1 normal heart sound present and S2 normal heart sound present PERIPHERAL PULSES: Peripheral pulses 2+ throughout GI: COMMON NORMALS: Normal to inspection, nondistended, normoactive bowel sounds present, Soft to palpation, non-tender, No hepatosplenomegaly present and no masses AUSCULTATION: Yes normoactive bowel sounds PALPATION: Yes Soft to palpation and Yes No hepatosplenomegaly present RECTAL EXAM: Yes deferred Extremity: COMMON NORMALS: no clubbing, cyanosis or edema and no pedal edema Neuro: COMMON NORMALS: patient oriented x3 Data : 09/06/20 05:03 09/06/20 05:03 A&P Assessment and plan (1) Chest pain: He has significant chest discomfort concerning for unstable angina, in the face of a non-ST elevation myocardial infarction. He has received therapeutic Lovenox in the emergency department around 6 AM. We will continue. He has received an aspirin, will continue Defer Plavix loading to cardiology Keep n.p.o. as he is having continued pain Nitroglycerin drip Statin Note that his CTA did not have a pulmonary embolism. He did not have an aortic aneurysm. Check TSH Check echocardiogram Status: Acute Qualifiers: Chest pain type: unspecified Qualified Code(s): R07.9 - Chest pain, unspecified Additional A&P Information Full code Lovenox will suffice for DVT prophylaxis Attestations Medical Necessity Statement*: Patient needs to be in hospital for management of typical chest pain, s/p PCI. 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
--- NOTE | 2020-09-06 15:16 | PM.PN ---
Subjective Subjective: Interval history: No overnight event. Feeling much better. He is status post PCI to proximal LAD and mid RCA. Medications: Reviewed: Yes Vitals/I&O/Wt Last Vital Signs Temp 97.9 F 09/06/20 12:00 Pulse 65 09/06/20 14:00 Resp 18 09/06/20 14:00 BP 88/48 09/06/20 14:00 Pulse Ox 97 09/06/20 14:00 09/06/20 09/06/20 09/06/20 06:59 14:59 22:59 Intake Total 922 / 922 Output Total 450 / 1050 Balance -450 / -1050 922 / 922 Weight last 48 hrs Weight 191 lb Weight 190 lb Physical Exam Narrative: EXAM NARRATIVE: GENERAL: Patient is alert, awake and oriented x3. NECK: No jugular vein distension. HEENT: No cyanosis. No icterus. No pallor. HEART: Regular S1 and S2. No murmur, rub or gallop. LUNGS: Clear to auscultate bilaterally. ABDOMEN: Soft, nontender and nondistended. Positive bowel sounds. No guarding, rebound or tenderness. CENTRAL NERVOUS SYSTEM: Grossly nonfocal. EXTREMITIES: Lower extremities without edema bilaterally. Data : 09/06/20 05:03 09/06/20 05:03 A&P Assessment and plan (1) Non-ST elevation AL (NSTEMI): Status post drug-eluting stent to proximal LAD and mid RCA. Continue aspirin statin beta-kareem add a THANIA inhibitor. Continue Brilinta for next 2 years. Echo will be obtained to assess LV function Status: Acute (2) Hyperlipidemia LDL goal <70: Will start patient on statin Status: Acute Attestations Medical Necessity Statement*: Patient require continuation hospitalization for above defined care. Patient can move out of the unit today. Coding Level of Care Code Established Pt Acute Certified Prosthetist for Cintia Pastor Patient Type Established History Detailed Exam Detailed Diagnoses Non-ST elevation AL (NSTEMI) I21.4 Hyperlipidemia LDL goal <70 E78.5
[2020-09-06] MEDS: atorvastatin 40 mg Tablet PO (20:00)
[2020-09-07] VITALS (11 sets, daily range): BP systolic 91–116; BP diastolic 52–82; PULSE 72–87; RESP 16–30; TEMP 36.6–37.3; O2SAT 93–98
[2020-09-07] MEDS: metoprolol tartrate 25 mg Tablet 12.5 MG PO ×2 (08:26→13:52)
[2020-09-07] MEDS: lisinopril 2.5 mg Tablet PO (08:29)
[2020-09-07] MEDS: aspirin 325 mg EC Tablet PO (08:29)
[2020-09-07] MEDS: ticagrelor 90 mg Tablet PO ×2 (08:29→13:53)
--- NOTE | 2020-09-07 12:19 | PM.DCS ---
Discharge Providers Date of Admission: 09/05/20 06:07 Date of Discharge: September 07, 2020 Attending Provider at Admission: Jamia Stallworth MD Attending Provider at Discharge: Dashawn Barone MD Diagnoses at Discharge Discharge Diagnosis (1) Chest pain: Status: Acute Qualifiers: Chest pain type: unspecified Qualified Code(s): R07.9 - Chest pain, unspecified (2) Presence of stent in coronary artery in patient with coronary artery disease: Status: Acute Reason for Visit Reason for Visit: UPPER BACK PAIN Hospital Course Hospital Course 65 year-old male with no significant past medical history was admitted with chief complaint of acute onset of chest back discomfort started around 2 AM waking him up from sleep on the day of admission, it predominantly started as severe back pain, with some radiation to the chest, usually he thought that it could be, pulled muscle from moving some boxes, but as the pain got worsened and dint responded to sublingual nitro he called 911 and came to the hospital. During this admission he was admitted for the management of unstable angina, he was started on complete ACS protocol, he was kept n.p.o. Initial EKG demonstrates sinus rhythm, normal axis, ST depression inferior and lateral. Repeat EKG similar but with T wave inversion aVL. CT angio chest with and without contrast ruled out any possible aortic dissection, as well as pulmonary emboli. He underwent cardiac cath.status post PCI to proximal LAD and mid RCA. 2D echo done during the hospital stay:Normal left ventricular cavity size. Moderately decreased left ventricular systolic function. Left ventricular ejection fraction is estimated at 45 %. There appeared to be anterior, septal and apical wall hypokinesis.Grade I/IV diastolic dysfunction (abnormal relaxation filling pattern), normal to mildly elevated filling pressures. There is no pericardial effusion. No significant valve abnormalities. Pulmonary artery systolic pressure is within normal limits. Right atrial pressure is around 5 mm of mercury. Patient was discharged on aspirin 81 mg p.o. daily, Lipitor 40 mg p.o. daily, Brilinta 90 mg p.o. twice daily, metoprolol succinate 25 mg p.o. daily, lisinopril 2.5 mg po daily.Sublingual nitro prn. Patient responded well to the above medical management, and was discharged in stable condition to home.Patient will continue to follow cardiology as an outpatient. Physical Exam Const: COMMON NORMALS: patient oriented x3 HENMT: COMMON NORMALS: normocephalic and atraumatic HEAD & SCALP: normocephalic and atraumatic Chest: CHEST: Yes Symmetrical chest wall rise Resp: COMMON NORMALS: clear to auscultation bilaterally AUSCULTATION: clear to auscultation bilaterally Cardio: COMMON NORMALS: regular rate, regular rhythm, S1 normal heart sound present, S2 normal heart sound present, No gallops present (Cardio), No murmurs present (Cardio), No rub (Cardio) and Peripheral pulses 2+ throughout RATE: regular rate RHYTHM: regular rhythm HEART SOUNDS: S1 normal heart sound present and S2 normal heart sound present PERIPHERAL PULSES: Peripheral pulses 2+ throughout GI: COMMON NORMALS: Normal to inspection, nondistended, normoactive bowel sounds present, Soft to palpation, non-tender, No hepatosplenomegaly present and no masses AUSCULTATION: Yes normoactive bowel sounds PALPATION: Yes Soft to palpation and Yes No hepatosplenomegaly present RECTAL EXAM: Yes deferred Extremity: COMMON NORMALS: no clubbing, cyanosis or edema and no pedal edema Neuro: COMMON NORMALS: patient oriented x3 Discharge Data Data Completed and Pending: Completed Studies During Hospitalization Category Date Time Status CT angio chest 71 275 Stat Cat Scan 09/05/20 03:58 Completed XR chest 1V jolly ble [id number] Stat Exams 09/05/20 03:28 Completed CV echo complete* [id number] Routine Ultrasound 09/05/20 08:32 Completed Pending at discharge Category Date Time Status 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 request for service Routin e Exams 09/05/20 08:42 Taken Vitals: Last Vital Signs Temp 98.1 F 09/07/20 08:00 Pulse 77 09/07/20 10:00 Resp 16 09/07/20 10:00 BP 91/52 09/07/20 10:00 Pulse Ox 97 09/07/20 10:00 Discharge Plan Discharge Patient Disposition: Home Condition: Stable Prescriptions: New Adult Aspirin Regimen 81 mg tablet,delayed release (DR/EC) 81 mg PO DAILY Qty: 30 RF: 3 Brilinta 90 mg tablet 90 mg PO BID Qty: 60 RF: 3 lisinopril 2.5 mg tablet 2.5 mg PO DAILY Qty: 30 RF: 3 metoprolol succinate 25 mg capsule,sprinkle,ER 24hr 25 mg PO DAILY Qty: 30 RF: 3 Lipitor 40 mg tablet 40 mg PO DAILY Qty: 30 RF: 3 Nitrostat 0.4 mg tablet, sublingual 0.4 mg sublingual Q5M PRN (Reason: chest pain) Qty: 30 RF: 3 Discharge Orders: Discharge Order (Routine); Ordered 09/07/20 Ordered By: Dashawn Barone Referrals: Jamia Teixeira MD [Physician] - 1 month Discharge Diet: Regular Discharge Activity: Resume usual activity Patient Instructions: Metoprolol (By mouth), Lisinopril (By mouth), Aspirin (By mouth), Nitroglycerin, Rapid Release (By mouth), Atorvastatin (By mouth), Ticagrelor (By mouth), Myocardial Infarction (DC), Left Heart Catheterization (DC), Coronary Angioplasty (DC), Hyperlipidemia (DC), Opioid Safety Activity Restrictions/Additional Instructions: Follow-up with Kellie Wilkinson cardiology nurse practitioner in 7 days Discharge Attestations Time Spent in Discharge Care*: greater than 30 min Specific Discharge Activities: educating patient, educating and/or supporting family/caregiver, discussing with pcp/other providers, discussing with rehabilitation caseworker/social workers/dc planners, documenting/other paperwork and evaluating patient/reviewing data Status at Discharge: Cognitive status at discharge: cognitively intact, Behavioral status at discharge: cooperative, Functional status at discharge: independent ambulation Overall status at discharge: patient is back to baseline Quality Metrics Clinical Quality Measures During this hospital stay, did patient experience: None Coding Level of Care Code Acute Chg FW DC note Diagnoses Chest pain R07.9 Chest pain type: unspecified Presence of stent in coronary artery in patient with coronary artery disease I25.10; Z95.5
--- NOTE | 2020-09-07 13:31 | P.PN_ITS ---
Subjective Subjective: Interval history: Stable doing fine from a cardiovascular perspective. Medications: Reviewed: Yes Vitals/I&O/Wt Last Vital Signs Temp 98.1 F 09/07/20 08:00 Pulse 77 09/07/20 10:00 Resp 16 09/07/20 10:00 BP 91/52 09/07/20 10:00 Pulse Ox 97 09/07/20 10:00 09/06/20 09/07/20 09/07/20 22:59 06:59 14:59 Intake Total 560 / 1482 400 / 400 Balance 560 / 1482 400 / 400 Weight last 48 hrs Weight 192 lb Weight 191 lb Physical Exam Narrative: EXAM NARRATIVE: GENERAL: Patient is alert, awake and oriented x3. NECK: No jugular vein distension. HEENT: No cyanosis. No icterus. No pallor. HEART: Regular S1 and S2. No murmur, rub or gallop. LUNGS: Clear to auscultate bilaterally. ABDOMEN: Soft, nontender and nondistended. Positive bowel sounds. No guarding, rebound or tenderness. CENTRAL NERVOUS SYSTEM: Grossly nonfocal. EXTREMITIES: Lower extremities without edema bilaterally. Const: COMMON NORMALS: alert Resp: COMMON NORMALS: clear to auscultation bilaterally AUSCULTATION: clear to auscultation bilaterally Neuro: SENSORIUM/ORIENTATION: Yes alert Data : 09/06/20 05:03 09/06/20 05:03 A&P Assessment and plan (1) Non-ST elevation OR (NSTEMI): Status post PCI to proximal LAD and mid RCA for ST elevation OR. Continue current regimen continue aspirin statin Plavix beta-kareem. Patient has moderate LV dysfunction ejection fraction 45%, he is not in heart failure. THANIA inhibitor has been added. Patient will follow up Status: Acute (2) Hyperlipidemia LDL goal <70: Continue statin Status: Acute Attestations Medical Necessity Statement*: Patient can be discharged home today Coding Level of Care Code Acute Carpenter Assistant Installer for Cintia Pastor Diagnoses Non-ST elevation OR (NSTEMI) I21.4 Hyperlipidemia LDL goal <70 E78.5
[2020-09-07] MEDS: atorvastatin 40 mg Tablet PO (13:53)
--- NOTE | 2020-09-07 14:07 | PC.NURSE ---
Dsicharge instructions provided and discussed. Care notes ( see teaching assessment) provided. Pt to call tomorrow (Tuesday' for follow-up appts with Kellie Wilkinson and Dr Teixeira. Metoprolol 25mg, Brillinta 90 mg and Atorvastatin 40mg tablets provided to pt , as ordered, for doses due tonight. Cardiac cath wallet card given to pt. Brillianta coupon/plan provided. Pt discharged.
== END 2020-09-07 14:05 | disposition home or self-care (01) | DRG 247 ==
LOC: ER 04:15 → MEDSURG 06:21 → ICU 08:32
PROVIDERS: Internal Medicine; Internal Medicine Cardiovascular Disease; Admitting Provider Internal Medicine; Emergency Provider Family Medicine; Visit Provider Internal Medicine
PROC: 027135Z Dilation of Coronary Artery, Two Arteries with Two Drug-eluting Intraluminal Devices, Percutaneous Approach (ICD-10-PCS; principal; 2020-09-05 08:30)
PROC: 027135Z Dilation of Coronary Artery, Two Arteries with Two Drug-eluting Intraluminal Devices, Percutaneous Approach (ICD-10-PCS; 2020-09-05 08:30)
DX: I21.4 Non-ST elevation (NSTEMI) myocardial infarction (principal); I25.10 Atherosclerotic heart disease of native coronary artery without angina pectoris; E78.5 Hyperlipidemia, unspecified
CPT/HCPCS: 36415; 71045; 71275; 80048; 80053; 81003; 83036; 83880; 84443; 84484; 85025; 85378; 85730; 93005; 93306; 93454; 96372; 96374; 96375; 99285; C1725; C1769; C1874; C1887; C1894; C9600; C9601; J1644; J1650; J2250; J2270; J2405; J3010; J3246; J3490; Q9967

== ENCOUNTER → 2020-09-15 14:30 | Outpatient (BNVA) | payer OTHER, SELFPAY | PROVIDERS: Visit Provider Nurse Practitioner Family | DX: I25.119 Atherosclerotic heart disease of native coronary artery with unspecified angina pectoris (principal) | CPT/HCPCS: 80048 ==

== ENCOUNTER 2020-10-09 08:46 | Outpatient (RCR) | payer OTHER, MEDICARE, SELFPAY | END 2020-11-05 23:59 | disposition home or self-care (01) | LOC: CR 08:46 | PROVIDERS: Referring Provider Internal Medicine Cardiovascular Disease; Visit Provider Internal Medicine Cardiovascular Disease | DX: I25.10 Atherosclerotic heart disease of native coronary artery without angina pectoris (principal) | CPT/HCPCS: 93798 ==

== ENCOUNTER 2020-11-06 13:53 | Outpatient (RCR) | payer OTHER, MEDICARE, SELFPAY | END 2020-12-06 23:59 | disposition home or self-care (01) | LOC: CR 13:53 | PROVIDERS: Referring Provider Internal Medicine Cardiovascular Disease; Visit Provider Internal Medicine Cardiovascular Disease | DX: I25.10 Atherosclerotic heart disease of native coronary artery without angina pectoris (principal) | CPT/HCPCS: 93798 ==

== ENCOUNTER 2020-12-08 09:44 | Outpatient (RCR) | payer OTHER, MEDICARE, SELFPAY | END 2021-01-06 23:59 | disposition home or self-care (01) | LOC: CR 09:44 | PROVIDERS: Referring Provider Internal Medicine Cardiovascular Disease; Visit Provider Internal Medicine Cardiovascular Disease | DX: I25.10 Atherosclerotic heart disease of native coronary artery without angina pectoris (principal) | CPT/HCPCS: 93798 ==

== ENCOUNTER 2021-01-07 14:26 | Outpatient (RCR) | payer OTHER, MEDICARE, SELFPAY | END 2021-02-05 23:59 | disposition home or self-care (01) | LOC: CR 14:26 | PROVIDERS: Referring Provider Internal Medicine Cardiovascular Disease; Visit Provider Internal Medicine Cardiovascular Disease | DX: I25.10 Atherosclerotic heart disease of native coronary artery without angina pectoris (principal) | CPT/HCPCS: 93798 ==

== ENCOUNTER 2021-03-11 11:10 | Outpatient (CLI) | payer OTHER, MEDICARE, SELFPAY ==
[2021-03-11 12:04] LABS: Basophils % 0.6 %; Eosinophils # 0.1 10^3/uL (0.0-0.8); Eosinophils % 1.1 %; Hematocrit 47.5 % (42.0-52.0); Hemoglobin 16.1 g/dL (11.7-16.6); Lymphocytes # 1.4 10^3/uL (0.8-4.8); Lymphocytes % 21.8 %; Mean Corpuscular HGB Conc 33.9 g/dL (30.0-36.0); Mean Corpuscular Hemoglobin 30.4 pg (28.0-34.0); Mean Corpuscular Volume 89.6 fl (80-94); Mean Platelet Volume 10.2 fL (7.4-10.4); Monocytes # 0.4 10^3/uL (0.2-0.9); Monocytes % 6.9 %; Neutrophils # 4.45 10^3/uL (1.8-7.7); Neutrophils % 69.3 %; Nucleated Red Blood Cells % 0 %; Platelet Count 189 10^3/cmm (130-400); Red Cell Distribution Width 12.7 % (12.1-15.1); White Blood Count 6.4 10^3/uL (4.0-10.0)
[2021-03-11 12:34] LABS: T3 Free 3.5 PG/ML (2.0-4.4); Thyroid Stimulating Hormone 2.23 uIU/mL (0.27-4.20)
[2021-03-11 12:45] LABS: Alanine Aminotransferase 35 U/L (0-41); Albumin Level 4.6 g/dL (3.5-5.2); Alkaline Phosphatase 104 IU/L (40-130); Anion Gap 16.5 (5-19); Aspartate Amino Transferase 24 U/L (0-40); Blood Urea Nitrogen 13 mg/dL (8-23); Calcium 9.1 mg/dL (8.5-10.5); Carbon Dioxide 26 mmol/L (22-29); Chloride 95 mmol/L (98-107); Globulin 2.4 g/dL (1.3-4.6); Glomerular Filtration Rate 113.2 mL/min (90-130); Glucose 87 mg/dL (65-115); Osmolality Calculated 275 mOsm/kg (285-295); Potassium 4.5 mmol/L (3.5-5.1); Sodium 133 mmol/L (136-145); Total Bilirubin 0.7 mg/dL (0.15-1.2)
== END 2021-03-11 11:11 | disposition home or self-care (01) ==
LOC: LAB 11:16
PROVIDERS: Visit Provider Family Medicine
DX: K40.90 Unilateral inguinal hernia, without obstruction or gangrene, not specified as recurrent (principal); I10 Essential (primary) hypertension; Z76.89 Persons encountering health services in other specified circumstances; R79.89 Other specified abnormal findings of blood chemistry; I25.119 Atherosclerotic heart disease of native coronary artery with unspecified angina pectoris
CPT/HCPCS: 80053; 84153; 84439; 84443; 84481; 85025

== ENCOUNTER → 2021-04-23 14:12 | Outpatient (BNVA) | payer OTHER, SELFPAY | PROVIDERS: PCP Nurse Practitioner Adult Health; Visit Provider Surgery | DX: Z01.812 Encounter for preprocedural laboratory examination (principal) | CPT/HCPCS: 87635 ==

== ENCOUNTER 2021-04-30 05:54 | Day surgery (SDC) | payer OTHER, SELFPAY ==
[2021-04-29 12:32] VITALS: BMI 27.3
[2021-04-30] VITALS (9 sets, daily range): BP systolic 90–132; BP diastolic 55–85; PULSE 51–65; RESP 12–18; TEMP 36.1–36.6; O2SAT 96–100
[2021-04-30] MEDS: sodium chloride 0.9% 1,000 ML 30 ML IV (06:30)
--- NOTE | 2021-04-30 06:34 | W.PM.OPSUD ---
Surgery/Procedure H&P Update DATE OF PROCEDURE: April 30, 2021 DATE H&P PERFORMED: 03/31/21 H&P UPDATE INFORMATION: No changes to prior documentation PREOP DIAGNOSIS: Left inguinal hernia. PLANNED PROCEDURE: Operation Date: 04/30/21 07:00 Proposed Procedures p Inguinal Hernia Repair w/ Mesh 17137 K40.90 Z51.81(Left) - Michael Anand MD
--- NOTE | 2021-04-30 06:37 | P.ANESASSM_ITS ---
Pre-Anesthetic Assessment Pre-Anesthetic Assessment: Height/Weight: Height 1.75 m Weight 83.915 kg Temp Pulse Resp BP Pulse Ox 97.3 F L 62 18 132/85 100 04/30/21 06:05 04/30/21 06:05 04/30/21 06:05 04/30/21 06:05 04/30/21 06:05 Preop Diagnosis: Left inguinal hernia. Proposed Procedure: Operation Date: 04/30/21 07:00 Proposed Procedures p Inguinal Hernia Repair w/ Mesh 12859 K40.90 Z51.81(Left) - Michael Anand MD Was Beta Charles taken within 24 hours: Yes Was Clonidine taken within 24 hours: N/A Last intake: Intake Last Liquid Date 04/29/21 Last Liquid Time 19:00 Last Solid Date 04/29/21 Last Solid Time 18:30 Social: Social History: No alcohol and No tobacco Exam: Pre-Anes Outpt Exam: alert, oriented x 3, clear to auscultation b ilaterally and regular rate & rhythm Airway: Submandibular: WNL Cervical ROM: WNL MP: 2 Dentition: Chipped History/ROS: No significant complaints CV/HEM: CV/HEM: CAD, HTN and ID Comments: Stents in August. Functional capacity > 4 DLD TTE 09/05/20 CONCLUSIONS 1-Normal left ventricular cavity size. Moderately decreased left ventricular systolic function. Left ventricular ejection fraction is estimated at 45 %. There appeared to be anterior, septal and apical wall hypokinesis.Grade I/IV diastolic dysfunction (abnormal relaxation filling pattern), normal to mildly elevated filling pressures. 2-There is no pericardial effusion. 3-No significant valve abnormalities. 4-Pulmonary artery systolic pressure is within normal limits. 5-Right atrial pressure is around 5 mm of mercury. 6-There are no prior echocardiogram studies to compare. Highway Truck Driver Report 09/05/20 Conclusions 1. There is total occlusion coronary artery disease with two vessel disease. 2. Proximal Left Anterior Descending was treated with a Balloon, Drug Eluting Stent, and Balloon. 3. Mid Left Anterior Descending was treated with a Balloon. 4. Distal Right Coronary Artery was treated with a Balloon, and Drug Eluting Stent. : : None reported Hepatic: Hepatic: None reported GI: GI: None reported Metabolic: Metabolic: None reported Musc/skel: Musc/skel: None reported Neuropsych: Neuropsych: None reported Anesthetic Plan: ASA status: 3 Anesthesia: Anesthesia Evaluation, General and MAC Risk of > 500 ml blood loss (7ml/kg in children): No PFSH Anesthesia PFSH: Medical History Abnormal ECG Atherosclerosis of coronary artery Chest pain Elevated troponin I measurement HTN (hypertension) with goal to be determined Hyperlipidemia LDL goal <70 No pertinent family history Non-ST elevation ID (NSTEMI) Thoracic back pain Surgical History History of knee surgery Family History Other Hypertension Social History Smoking and tobacco status: never smoked Alcohol intake: never History of recent travel: No Data Anesthesia Cardiac Studies: 2 No Data to Display
--- NOTE | 2021-04-30 07:36 | PM.OP ---
Operative Report Date of procedure: April 30, 2021 Pre-op Diagnosis: Left inguinal hernia. Post-op Diagnosis: Left pantaloon hernia. Procedure Done: Repair of left inguinal hernias with mesh. Pathology: none sent Surgeon: Michael Anand Anesthesia: MAC Estimated blood loss (mL): 5 Complications: None. Condition: stable Disposition: same day Procedure: The patient was brought to the operating room and was placed in a supine position on the operating room table. A monitored anesthetic was induced. The left inguinal region was prepped and draped in a sterile fashion. A combination of 1% lidocaine with 1:100,000 parts epinephrine and 0.5% bupivacaine was used for local anesthesia throughout the procedure. A transverse incision was carried out above the level of the pubic tubercle. Cautery was used to divide the subcutaneous tissue down to the external oblique aponeurosis, which was incised in parallel with its fibers over the inguinal canal. The spermatic cord was looped with a Gustine drain. The patient was found to have a direct hernia defect in the floor of the inguinal canal. The hernia had obliterated almost the entire length of the canal floor down to the tubercle. The spermatic cord was inspected and there was a moderate amount of preperitoneal fat extending down with the cord to the internal ring, but no hernia sac was identified. The preperitoneal fat was carefully freed from the cord structures and was excised at the internal ring. The herniated contents from the direct hernia were freed from the surrounding subcutaneous tissue and were then reduced. A large mesh plug was used to hold the herniated tissue in a reduced position and the plug was secured using multiple sutures of 0 Prolene that were used to connect the conjoined area medially to the reflecting edge of Poupart's ligament laterally. This was carried out all the way down the inguinal canal, essentially recreating the inguinal canal floor down to the tubercle. The onlay patch was anchored at the tubercle with a suture of O Prolene and was laid along the new inguinal canal floor, allowing the cord structures to pass through the precut hole in the mesh. The 2 wings of the mesh were sewn to each other above the level of the internal ring with a suture of 0 Prolene. The external oblique aponeurosis was closed over the top of the cord using a running suture of 3-0 Vicryl. The wound was irrigated. The subcutaneous tissue was brought together with a simple suture of 3-0 Vicryl and the skin was approximated using a running subcuticular suture of 3-0 Vicryl. Benzoin and Steri-Strips were placed over the incision and a sterile bandage followed. The patient was taken to the recovery area in stable condition postoperatively.
--- NOTE | 2021-04-30 07:48 | P.PCN_ITS ---
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
--- NOTE | 2021-04-30 08:48 | ANE.PACU2 ---
Inpatient post-anesthesia follow up: Airway intact: Yes Vital signs: Temperature 97 F Pulse Rate 58 Respiratory Rate 18 Blood Pressure 97/69 Pulse Oximetry 97 Oxygen Delivery Me thod Room Air Oxygen Flow Rate 8 Fraction of Inspir ed Oxygen Hydration adequate: Yes Nausea and vomiting: No Pain level: 1 Mental status: Baseline
== END 2021-04-30 08:52 | disposition home or self-care (01) ==
PROVIDERS: PCP Nurse Practitioner Adult Health; Visit Provider Surgery
PROC: (CPT 49505; principal; 2021-04-30 07:00)
DX: K40.90 Unilateral inguinal hernia, without obstruction or gangrene, not specified as recurrent (principal); I25.10 Atherosclerotic heart disease of native coronary artery without angina pectoris; I10 Essential (primary) hypertension; I25.2 Old myocardial infarction; E78.5 Hyperlipidemia, unspecified; Z82.49 Family history of ischemic heart disease and other diseases of the circulatory system
CPT/HCPCS: 49505; C1781; J0690; J2250; J2704; J3010; J3490; J7030

== ENCOUNTER → 2021-06-22 15:41 | Outpatient (BNVA) | payer OTHER, SELFPAY | PROVIDERS: PCP Nurse Practitioner Adult Health; Visit Provider Orthopaedic Surgery | DX: Z20.822 Contact with and (suspected) exposure to COVID-19 (principal) | CPT/HCPCS: 87635 ==

== ENCOUNTER 2021-06-25 05:49 | Day surgery (SDC) | payer OTHER, SELFPAY ==
[2021-06-24 11:42] VITALS: BMI 29.5
[2021-06-25] VITALS (7 sets, daily range): BP systolic 132–181; BP diastolic 72–91; PULSE 60–66; RESP 18; TEMP 36.3; O2SAT 96–98
[2021-06-25] MEDS: sodium chloride 0.9% 1,000 ML 30 ML IV (06:36)
--- NOTE | 2021-06-25 06:53 | W.PM.OPSUD ---
Surgery/Procedure H&P Update DATE OF PROCEDURE: June 25, 2021 DATE H&P PERFORMED: 06/16/21 H&P UPDATE INFORMATION: I have reviewed H&P completed within last 30 days PREOP DIAGNOSIS: Trigger finger/Ganglion left long finger PLANNED PROCEDURE: Operation Date: 06/25/21 07:00 Proposed Procedures p Excision Of Ganglion Cyst left long finger 51263/32691/m67.442/m65.30(Left) - Reinaldo Maunel MD s Trigger Finger Release(Left) - Reinaldo Manuel MD
--- NOTE | 2021-06-25 07:03 | P.ANESASSM_ITS ---
Pre-Anesthetic Assessment Height/Weight: Height 1.75 m Weight 81.647 kg Temp Pulse Resp BP Pulse Ox 97.3 F L 66 18 155/91 98 06/25/21 06:12 06/25/21 06:12 06/25/21 06:12 06/25/21 06:12 06/25/21 06:12 Preop Diagnosis: Trigger finger/Ganglion left long finger Operation Date: 06/25/21 07:00 Proposed Procedures p Excision Of Ganglion Cyst left long finger 76611/97088/m67.442/m65.30(Left) - Reinaldo Manuel MD s Trigger Finger Release(Left) - Reinaldo Manuel MD Familial anesthetic complications: None Was Beta Charles taken within 24 hours: Yes Was Clonidine taken within 24 hours: N/A Last intake: Intake Last Liquid Date 06/24/21 Last Solid Date 06/24/21 Social No alcohol and No tobacco Exam alert, oriented x 3, clear to auscultation bilaterally and regular rate & rhythm Airway Submandibular: within normal limits Cervical ROM: within normal limits Mallampati: Class II Dentition: full CV/HEM Coronary Artery Disease (stent) and Hypertension Metabolic Hyperlipidemia Anesthetic Plan ASA status: 2 Anesthesia: MAC and Regional (specify below) (Elizabeth spence) Risk of > 500 ml blood loss (7ml/kg in children): No Medications/Allergies Home Medications Medication Instructions Recorded Confirmed Last Taken Type aspirin 81 mg tablet,delayed 81 mg PO DAILY #90 tab 05/19/21 06/25/21 06/24/21 Rx release (Adult Aspirin Regimen) atorvastatin 40 mg tablet (Lipitor) 40 mg PO DAILY #90 tab 05/19/21 06/25/21 06/24/21 Rx lisinopril 2.5 mg tablet 2.5 mg PO DAILY #90 tab 05/19/21 06/25/21 06/25/21 Rx nitroglycerin 0.4 mg sublingual 0.4 mg SUBLINGUAL Q5M PRN #30 tab 05/19/21 06/24/21 Unknown Rx tablet (Nitrostat) ticagrelor 90 mg tablet (Brilinta) 90 mg PO BID #180 tab 05/19/21 06/25/21 06/25/21 Rx metoprolol succinate 25 mg 25 mg PO DAILY 06/24/21 06/25/21 06/24/21 20:00 His tory tablet,extended release 24 hr Allergies Allergy/AdvReac Type Severity Reaction Status Date / Time No Known Allergies Allergy Verified 06/16/21 09:40 Current Medications Generic Name Dose Route Start Last Admin Trade Name Nancy PRN Reason Stop Dose Admin Sodium Chloride 1,000 mls @ 30 mls/hr 06/25/21 06:00 06/25/21 06:36 Sodium Chloride 0.9% IV 06/26/21 05:59 30 mls/hr .Q24H RADHA Administration PFSH Anesthesia Medical History Abnormal ECG Atherosclerosis of coronary artery Chest pain Elevated troponin I measurement HTN (hypertension) with goal to be determined Hyperlipidemia LDL goal <70 No pertinent family history Non-ST elevation ID (NSTEMI) Thoracic back pain Surgical History History of knee surgery Family History Other Hypertension Social History Smoking and tobacco status: never smoked Alcohol intake: never History of recent travel: No Data Anesthesia Cardiac Studies: Echocardiogram Ultrasound 09/05/20
--- NOTE | 2021-06-25 07:55 | P.OP_ITS ---
Operative Report Date of procedure: June 25, 2021 Pre-op diagnosis: Preop Diagnosis Trigger finger/Ganglion left long finger Post-op diagnosis: same Post-op diagnosis: Same Procedure done: Excision ganglion and trigger finger release left long finger Pathology: none sent Surgeon: Reinaldo Manuel Anesthesia: Nerve Block (Sheldahl block) Estimated blood loss (mL): 2 Tourniquet time (min): 20 Findings: The patient had a ganglion cyst over the ulnar base of the left long finger approximately 5 mm in diameter adherent to the flexor tendon sheath. More proximally at the level of the A1 thomas no tendon or tendon sheath abnormalities were visualized Condition: stable Disposition: PACU Procedure: The patient was taken to the operating room given 2 g of Ancef and a Elizabeth block by anesthesia. His left upper extremity was prepped and draped in the usual fashion. Initially an incision was made in line with the previous scar extending proximally and radially to distally and ulnarly. The distal end of the incision was then turned radially to allow mobilization of a radial-based flap. Dissection was carried through the subcutaneous tissue revealing an approximately 5 mm fluctuant ganglion. Utilizing blunt scissors the ganglion was sequentially excised and elevated off the tendon sheath. The base was cauterized with bipolar cautery. A transverse incision was made over the level of a 1 thomas in the palm over a distance of approximately a centimeter and a half. Dissection was accomplished down to the A1 thomas. With adequate visualization a scalpel was used to divide the central 8 mm of that structure. Blunt scissors were then used to extend the release approximately 5 mm proximally and 5 mm distally. Tendons were pulled the road and inspected to assure there health. Skin edges were infiltrated with 4 cc of 0.5%n Marcaine. The skin edges were closed with 3-0 Prolene, Xeroflo and compressive dressings were applied.
--- NOTE | 2021-06-25 14:21 | ANE.PACU2 ---
Inpatient post-anesthesia follow up: Airway intact: Yes Vital signs: Temperature 97.4 F Pulse Rate 60 Respiratory Rate 18 Blood Pressure 176/77 Pulse Oximetry 96 Oxygen Delivery Me thod Room Air Oxygen Flow Rate Fraction of Inspir ed Oxygen Hydration adequate: Yes Nausea and vomiting: No Pain level: 1 Mental status: Baseline
== END 2021-06-25 08:45 | disposition home or self-care (01) ==
PROVIDERS: PCP Nurse Practitioner Adult Health; Visit Provider Orthopaedic Surgery
PROC: (CPT 26055; principal; 2021-06-25 07:00)
PROC: (CPT 26055; 2021-06-25 07:00)
DX: M65.332 Trigger finger, left middle finger (principal); M67.442 Ganglion, left hand; I25.10 Atherosclerotic heart disease of native coronary artery without angina pectoris; Z95.5 Presence of coronary angioplasty implant and graft; I10 Essential (primary) hypertension; E78.5 Hyperlipidemia, unspecified; Z79.82 Long term (current) use of aspirin; I25.2 Old myocardial infarction
CPT/HCPCS: 26055; 26160; J0690; J2250; J2704; J3010; J3490; J7030

== ENCOUNTER → 2021-07-27 09:46 | Outpatient (BNVA) | payer OTHER, MEDICARE, SELFPAY | PROVIDERS: PCP Nurse Practitioner Adult Health; Visit Provider Podiatrist Foot & Ankle Surgery | DX: M79.672 Pain in left foot (principal) | CPT/HCPCS: 73630; 87635 ==

== ENCOUNTER 2021-07-30 05:41 | Day surgery (SDC) | payer OTHER, MEDICARE, SELFPAY ==
[2021-07-30 06:08] VITALS: BP 139/84; PULSE 61; RESP 18; TEMP 36.5; O2SAT 100
--- NOTE | 2021-07-30 06:30 | W.PM.OPSUD ---
Surgery/Procedure H&P Update DATE OF PROCEDURE: July 30, 2021 DATE H&P PERFORMED: 07/27/21 CHANGES TO PREVIOUS DOCUMENTATION: none PREOP DIAGNOSIS: Ganglion cyst left fourth toe PLANNED PROCEDURE: Operation Date: 07/30/21 07:00 Proposed Procedures p Excision Ganglion cyst left fourth toe 75234/m67.40(Left) - Tr Porter DPM
[2021-07-30] MEDS: sodium chloride 0.9% 1,000 ML 30 ML IV (06:33)
--- NOTE | 2021-07-30 07:19 | P.ANESASSM_ITS ---
Pre-Anesthetic Assessment Height/Weight: Height 1.75 m Temp Pulse Resp BP Pulse Ox 97.7 F 61 18 139/84 100 07/30/21 06:08 07/30/21 06:08 07/30/21 06:08 07/30/21 06:08 07/30/21 06:08 Preop Diagnosis: Ganglion cyst left fourth toe Operation Date: 07/30/21 07:00 Proposed Procedures p Excision Ganglion cyst left fourth toe 90959/[id number](Left) - Tr Porter DPM Familial anesthetic complications: none Was Beta Charles taken within 24 hours: N/A Was Clonidine taken within 24 hours: N/A Last intake: > 8 hrs Social No alcohol and No tobacco Exam alert, oriented x 3, clear to auscultation bilaterally and regular rate & rhythm Airway Submandibular: within normal limits Mallampati: Class I Dentition: full CV/HEM Coronary Artery Disease and Hypertension TTE 09/05/20 CONCLUSIONS ?1-Normal left ventricular cavity size. Moderately decreased left ?ventricular systolic function. Left ventricular ejection ?fraction is estimated at 45 %.? There appeared to be anterior, ?septal and apical wall hypokinesis.Grade I/IV diastolic ?dysfunction (abnormal relaxation filling pattern), normal to ?mildly elevated filling pressures. ?2-There is no pericardial effusion. ?3-No significant valve abnormalities. ?4-Pulmonary artery systolic pressure is within normal limits. ?5-Right atrial pressure is around 5 mm of mercury. ?6-There are no prior echocardiogram studies to compare. 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 1. There is total occlusion coronary artery disease with two vessel disease. ? 2. Proximal Left Anterior Descending was treated with a Balloon, Drug Eluting Stent, and Balloon. ? 3. Mid Left Anterior Descending was treated with a Balloon. ? 4. Distal Right Coronary Artery was treated with a Balloon, and Drug Eluting Stent. Metabolic Hyperlipidemia Anesthetic Plan ASA status: 3 Anesthesia: MAC Medications/Allergies Home Medications Medication Instructions Recorded Confirmed Last Taken Type aspirin 81 mg tablet,delayed 81 mg PO DAILY #90 tab 05/19/21 07/30/21 07/28/21 Rx release (Adult Aspirin Regimen) atorvastatin 40 mg tablet (Lipitor) 40 mg PO DAILY #90 tab 05/19/21 07/30/21 07/29/21 Rx lisinopril 2.5 mg tablet 2.5 mg PO DAILY #90 tab 05/19/21 07/30/21 07/29/21 Rx nitroglycerin 0.4 mg sublingual 0.4 mg SUBLINGUAL Q5M PRN #30 tab 05/19/21 07/29/21 Unknown Rx tablet (Nitrostat) ticagrelor 90 mg tablet (Brilinta) 90 mg PO BID #180 tab 05/19/21 07/30/21 07/29/21 Rx metoprolol succinate 25 mg 25 mg PO DAILY 06/24/21 07/30/21 07/29/21 History tablet,extended release 24 hr hydrocodone 5 mg-acetaminophen 325 1 tab PO Q4H #30 tab 06/25/21 07/30/21 07/29/21 Rx mg tablet hydrocodone 5 mg-acetaminophen 325 1 tab PO Q4H PRN 7 Days #20 tab 07/30/21 Unknown Rx mg tablet Allergies Allergy/AdvReac Type Severity Reaction Status Date / Time No Known Allergies Allergy Verified 07/29/21 14:37 Current Medications Generic Name Dose Route Start Last Admin Trade Name Freq PRN Reason Stop Dose Admin Sodium Chloride 1,000 mls @ 30 mls/hr 07/30/21 06:00 07/30/21 06:33 Sodium Chloride 0.9% IV 07/31/21 05:59 30 mls/hr .Q24H RADHA Administration PFSH Anesthesia Medical History Abnormal ECG Atherosclerosis of coronary artery Chest pain Elevated troponin I measurement HTN (hypertension) with goal to be determined Hyperlipidemia LDL goal <70 No pertinent family history Non-ST elevation [place] (NSTEMI) Thoracic back pain Surgical History History of knee surgery Family History Other Hypertension Social History Smoking and tobacco status: never smoked Alcohol intake: never History of recent travel: No Data Anesthesia Cardiac Studies: Echocardiogram Ultrasound 09/05/20
--- NOTE | 2021-07-30 07:22 | P.OP_ITS ---
Operative Report Date of procedure: July 30, 2021 Pre-op diagnosis: Ganglion cyst left fourth toe Post-op diagnosis: Same Post-op findings: Soft tissue mass viscous clear fluid left fourth toe communicating to the distal interphalangeal joint Procedure done: ?Excision of ganglion cyst left fourth toe. CPT code: 32043 Implants: 4-0 Vicryl, 4-0 nylon Specimens removed/disposition: None Surgeon: Tr Porter D.P.M. Design Printer Balloon: Mariano Estimated blood loss: 5 11 IV fluids: 0 Urine output: 0 Complications: None Findings: Fluid-filled cyst as above. Brief History: 65 year old male patient here at clinic for an evaluation of a cyst to fourth left toe.? It spontaniously ruptured at his last visit but has since filled back up. Patient states that he has this for years.? Patient states wearing tight fitting shoes causes him discomfort while walking due the raised area rubbing.? Patient states that wearing loose fitting shoes helps with the relief of discomfort while walking.? Patient has been n.p.o. since midnight. Covid screening is negative. Informed consent signed by patient and myself. I initialed his left foot. Risks include pain, bleeding, numbness, infection, recurrence of soft tissue mass, numbness, surgical site dehiscence, bruising, suture abscess and need for further surgical intervention. Procedure: Under mild sedation the patient was brought to the operating room and remained on the gurney in supine position. A timeout was performed. Anesthesia was then administered by the anesthesia service. Local anesthesia injected by myself consisting of 10 cc of one-to-one mixture 1% lidocaine and 0.5% Marcaine plain and a left fourth ray block. Well-padded pneumatic tourniquet applied to the left ankle. Left lower extremity was scrubbed, prepped and draped utilizing normal aseptic technique. Left foot was then exanguinated with an Esmarch bandage and the tourniquet inflated to 250 mmHg. Attention was directed to the left fourth toe where at the level of the distal interphalangeal joint a transverse converging semielliptical incisions were performed and a skin bridge excised and passed from operative field. Transection of the extensor tendon and joint capsule to access the distal interphalangeal joint was performed followed by resection of the head of the intermediate phalanx. No remaining soft tissue mesh was appreciated, incision was flushed with saline solution, extensor tendon reapproximated and capsule reapproximated with 4-0 Vicryl. Skin reapproximated 4-0 nylon. Specimen sent to pathology with appearance of mucoid cyst left fourth toe. Incision site was dressed with Adaptic, sterile 4 x 4, Melanie Coban followed by application of a postop shoe. Tourniquet was deflated and a prompt hyperemic response was noted to the distal digits of the left foot. Patient tolerated the procedure and anesthesia well and was transferred to the PACU with vital signs stable and vascular status intact. Following a period of postoperative monitoring he will be discharged home may be weightbearing as tolerated in a postop shoe. Was given at home care instructions, follow-up in my cell phone number to contact me with any postoperative questions or concerns.
[2021-07-30 07:43] VITALS: BMI 27.3
[2021-07-30] MEDS: lidocaine 1% INJ 20 mL SUBCUT (07:50)
[2021-07-30 08:15] VITALS: BP 93/43; PULSE 57; RESP 18; TEMP 36.2; O2SAT 94
[2021-07-30 08:20] VITALS: BP 85/47; PULSE 51; RESP 18; O2SAT 94
[2021-07-30 08:32] VITALS: BP 108/66; PULSE 55; RESP 18; TEMP 36.2; O2SAT 97
== END 2021-07-30 08:50 | disposition home or self-care (01) ==
LOC: OR 05:41
PROVIDERS: PCP Nurse Practitioner Adult Health; Visit Provider Podiatrist Foot & Ankle Surgery
PROC: (CPT 28092; principal; 2021-07-30 07:00)
DX: M67.472 Ganglion, left ankle and foot (principal); I25.10 Atherosclerotic heart disease of native coronary artery without angina pectoris; I10 Essential (primary) hypertension; E78.5 Hyperlipidemia, unspecified; Z79.82 Long term (current) use of aspirin; I25.2 Old myocardial infarction
CPT/HCPCS: 28092; 88304; J0690; J2250; J2704; J3490; J7030

== ENCOUNTER → 2022-05-26 15:01 | Outpatient (BNVA) | payer MEDICARE, SELFPAY | PROVIDERS: Visit Provider Internal Medicine | DX: I25.119 Atherosclerotic heart disease of native coronary artery with unspecified angina pectoris (principal); I10 Essential (primary) hypertension; I25.2 Old myocardial infarction | CPT/HCPCS: 99213 ==

== ENCOUNTER → 2022-11-11 11:26 | Outpatient (BNVA) | payer MEDICARE, SELFPAY | PROVIDERS: Visit Provider Internal Medicine Cardiovascular Disease | DX: I25.119 Atherosclerotic heart disease of native coronary artery with unspecified angina pectoris (principal); I10 Essential (primary) hypertension; Z95.5 Presence of coronary angioplasty implant and graft | CPT/HCPCS: 99213 ==

== ENCOUNTER 2023-01-07 07:33 | Emergency (ER) | payer MEDICARE, SELFPAY ==
[2023-01-07] VITALS (22 sets, daily range): BP systolic 118–137; BP diastolic 68–78; PULSE 61–82; RESP 12–20; TEMP 36.6; O2SAT 95–100; BMI 27.3
--- NOTE | 2023-01-07 07:50 | XR_ITS ---
WS: [id number] Exam: XR chest 1V portable [id number] Date/Time of Exam: 01/07/2023 7:51 AM Reason For Exam: syncope Comparison 09/05/2020. The lungs are clear and fully expanded. Normal cardiomediastinal silhouette. Bony structures are unre markable. Signs of coronary artery stenting. IMPRESSION: 1. No acute cardiopulmonary finding.
--- NOTE | 2023-01-07 07:50 | W.ED.SYNCOPE ---
HPI - Syncope General: Chief Complaint: Weakness Stated Complaint: loc hit head Time Seen by Provider: 01/07/23 07:35 Source: patient and family () Mode of arrival: ambulatory Limitations: no limitations History of Present Illness: Patient is a very nice 67-year-old gentleman who presents to ED today along with his for evaluation following a syncopal episode. Patient states he was in [employer] and had yet to eat when he began feeling flushed . Patient states he knew he was going to pass out. He states he has a history of syncopal episodes when he was a child. Patient states he was with his son and according to son report he lost consciousness for approximately 30 to 45 seconds. No seizure activity. No post-ictal symptoms. There was a report that he struck his head however patient denies this and declines any evaluation for this. Patient has an extensive cardiac history including several cardiac stents and is very concerned that symptoms could be secondary to his heart. Patient states he never had any chest pain, shortness of breath, difficulty breathing prior to the syncopal episode and states currently he feels asymptomatic apart from feeling tired. He states he did not sleep good yesterday evening and coupled with not eating breakfast-he thinks this is why he passed out. He states over the past several days he has continued to be as active as normal reporting he walks 4 miles a day. He has not noticed any shortness of breath or chest pain with this. He does state over the past several days he has had a very minor soreness to his left lower abdomen. Denies nausea, vomiting, changes in bowel movements. No fevers. No urinary symptoms. MD complaint: loss of consciousness and felt faint Onset (ago): hour(s) -: second(s) Prodromal symptoms: diaphoresis and other (states he felt flushed ) Witnessed: Yes - by Bystander Context: at rest Injuries sustained associated with event: none Associated symptoms: Reports abdominal pain; Deny chest pain, fever(s), headache(s), lightheadedness or nausea History: history of CAD Treatments prior to arrival: none Review of Systems Const: Reports: fatigue; Denies: fever(s), chills, body aches, change in appetite, change in weight or malaise Eyes: Denies: change in vision, blurry vision, photophobia, floaters or seeing flashes Card: Reports: syncope; Denies: chest pain, palpitations, irregular heart rhythm, edema, swelling of feet/ankles, lightheadedness, pre-syncope, dyspnea on exertion, orthopnea, leg pain with exertion or acrocyanosis Resp: Denies: dyspnea, productive cough, wheezing, pain on inspiration, hemoptysis or chest congestion GI: Reports: abdominal pain; Denies: nausea, vomiting, heartburn or diarrhea : Denies: flank pain, difficulty urinating, dysuria, urinary frequency, urinary urgency or urinary hesitancy Musc: Denies: neck pain, back pain, extremity pain, extremity swelling or joint pain Skin/Breast: Denies: rash Neuro: Denies: headache(s), numbness in extremities, weakness in extremities, sensory changes, lack of coordination, difficulty walking, frequent falls, dizziness, confusion, behavioral changes, Slurred speech present, difficulty communicating thoughts or seizure-like activity PFSH ED PFSH: Medical History Abnormal ECG Atherosclerosis of coronary artery Chest pain Elevated troponin I measurement HTN (hypertension) with goal to be determined Hyperlipidemia LDL goal <70 No pertinent family history Non-ST elevation [place] (NSTEMI) Thoracic back pain Surgical History History of knee surgery Family History Other Hypertension Social History Smoking and tobacco status: never smoked Alcohol intake: never Physical Exam Const: COMMON NORMALS: no acute distress, average body habitus, patient oriented x3, no limitations, healthy appearing, alert and well nourished HENMT: COMMON NORMALS: normocephalic and atraumatic HEAD & SCALP: normal to inspection, normocephalic and atraumatic Eye: COMMON NORMALS: Equal, round and reactive pupils present and EOMs intact bilaterally GENERAL EYE: appearance normal, both eyes and all related structures and normal light reflex PUPIL: Yes Equal, round and reactive pupils present DIRECT OPHTHALMOSCOPY: Yes normal light reflex OTHER: no nystagmus Neck/C-Spine: COMMON NORMALS: full ROM, no lymphadenopathy, supple and no meningeal signs Chest: COMMONS NORMALS: normal inspection of the chest and normal palpation of entire chest wall Resp: COMMON NORMALS: normal respiratory effort and clear to auscultation bilaterally AUSCULTATION: clear to auscultation bilaterally Cardio: COMMON NORMALS: regular rate and regular rhythm RATE: regular rate RHYTHM: regular rhythm GI: COMMON NORMALS: Normal to inspection, nondistended, normoactive bowel sounds present, Soft to palpation, No hepatosplenomegaly present and no masses INSPECTION: Yes normal to inspection AUSCULTATION: Yes normoactive bowel sounds PALPATION: Yes Soft to palpation, Yes Tenderness to palpation present (GI) (LLQ), No Guarding due to palpation present (GI), No Rigid due to palpation and Yes No hepatosplenomegaly present : COMMON NORMALS: Yes no CVA tenderness BLADDER/KIDNEY EXAM: Yes no CVA tenderness Back/Pelvis: COMMON NORMALS: no CVA tenderness, thoracic and lumbar spine normal to inspection, no thoracic nor lumbar tenderness and thoraco-lumbar ROM normal Extremity: COMMON NORMALS: normal to inspection, capillary refill normal, no clubbing, cyanosis or edema, no calf tenderness and no pedal edema GENERAL: Yes normal exam except as noted Neuro: PAVITHRA COMA SCALE: document GCS findings Pavithra coma scale eye opening: Spontaneous Pavithra coma scale verbal response: Orientated [place] coma scale motor response: Obey commands Pavithra coma scale total score: 15 COMMON NORMALS: patient oriented x3, CN's II-XII intact bilaterally, moves all extremities, no focal motor deficits, no sensory deficits noted and gait normal SENSORIUM/ORIENTATION: Yes alert MENINGEAL SIGNS: Yes no meningeal signs Skin: COMMON NORMALS: no rashes or lesions noted GENERAL SKIN EXAM: no rashes or lesions noted Course Vital Signs: Vital signs: Vital Signs Temperature 97.9 F 01/07/23 07:42 Pulse Rate 82 01/07/23 12:54 Respiratory Rate 15 01/07/23 12:15 Blood Pressure 122/68 01/07/23 12:54 Pulse Oximetry 95 01/07/23 12:54 Oxygen Delivery Me thod Room Air 01/07/23 07:42 MDM - Syncope Medical Decision Making Patient is a very nice 67-year-old gentleman here along with his for concerns of a syncopal episode that occurred earlier this morning while at [employer]. Due to patient's extensive cardiac history was very concerned that this could be cardiogenic related. Patient's baseline and repeat EKGs show no changes from previous. His baseline repeat troponins are normal. He never had any complaints of chest pain or shortness of breath. I was some concern that patient struck his head however he adamantly declines any work-up for this including CT imaging. He had complained of some minor soreness to his left lower abdomen over the past few days nonaccompanied by changes in bowel movements. Patient's blood work was unremarkable however his UA did show some hematuria the CT imaging was obtained. This shows an uncomplicated diverticulitis that certainly would explain his pain. Unknown whether this was related to his syncopal episode. Patient seems to think that it was related to him not sleeping the night before and not eating. He states upon arrival he feels back to normal. At this time he will be treated with antibiotics for the diverticulitis and recommended follow-up with primary care. Return to ED precautions given. Lab Data 01/07/23 09:38 01/07/23 09:38 Laboratory Results WBC 12.57 10^3/uL (3.29-11.43) H 01/07/23 09:38 Corrected WBC Cancelled 01/07/23 07:56 RBC 5.68 10^6/uL (3.85-5.65) H 01/07/23 09:38 Hgb 17.00 g/dL (11.27-16.99) H 01/07/23 09:38 Hct 49.9 % (37-53) 01/07/23 09:38 MCV 87.9 fl (82-101) 01/07/23 09:38 MCH 29.9 pg (27-33) 01/07/23 09:38 MCHC 34.1 g/dL (30-55) 01/07/23 09:38 RDW 12.6 % (12.1-15.1) 01/07/23 09:38 Plt Count 163 10^3/cmm (157-399) 01/07/23 09:38 MPV 9.4 fL (7.4-10.4) 01/07/23 09:38 Gran % Cancelled 01/07/23 07:56 Neut % (Auto) 88.0 % 01/07/23 09:38 Lymph % (Auto) 6.0 % 01/07/23 09:38 [place] % (Auto) 4.9 % 01/07/23 09:38 Eos % (Auto) 0.2 % 01/07/23 09:38 Baso % (Auto) 0.2 % 01/07/23 09:38 Neut # (Auto) 11.06 10^3/uL (1.8-7.7) H 01/07/23 09:38 Lymph # (Auto) 0.8 10^3/uL (0.8-4.8) 01/07/23 09:38 [place] # (Auto) 0.6 10^3/uL (0.2-0.9) 01/07/23 09:38 Eos # (Auto) 0.0 10^3/uL (0.0-0.8) 01/07/23 09:38 Baso # (Auto) 0.0 10^3/uL (0.0-0.1) 01/07/23 09:38 Absolute Gran (auto) Cancelled 01/07/23 07:56 Nucleated RBC % (auto) 0 % 01/07/23 09:38 Nucleated RBCs # 0.0 /100WBC 01/07/23 09:38 Sodium 135 mmol/L (136-145) L 01/07/23 09:38 Potassium 4.3 mmol/L (3.5-5.1) 01/07/23 09:38 Chloride 97 mmol/L (98-107) L 01/07/23 09:38 Carbon Dioxide 28 mmol/L (22-29) 01/07/23 09:38 Anion Gap 14.3 (5-19) 01/07/23 09:38 BUN 13 mg/dL (8-23) 01/07/23 09:38 Creatinine 0.9 mg/dL (0.7-1.2) 01/07/23 09:38 GFR Calculation 84.2 mL/min (90-130) L 01/07/23 09:38 Glucose 127 mg/dL (65-115) H 01/07/23 09:38 Calculated Osmolality 282 mOsm/kg (285-295) L 01/07/23 09:38 Calcium 9.6 mg/dL (8.5-10.5) 01/07/23 09:38 Total Bilirubin 0.9 mg/dL (0.15-1.2) 01/07/23 09:38 AST 21 U/L (0-40) 01/07/23 09:38 ALT 23 U/L (0-41) 01/07/23 09:38 Alkaline Phosphatase 124 U/L (40-130) 01/07/23 09:38 Troponin T Baseline 14 ng/L (0-15) 01/07/23 09:38 Troponin T 120 Minute 11.29 ng/L (0-15) 01/07/23 11:22 Delta Troponin T -2.71 ABS# (0-10) L 01/07/23 11:22 Total Protein 7.4 g/dL (6.6-8.7) 01/07/23 09:38 Albumin 4.9 g/dL (3.5-5.2) 01/07/23 09:38 Globulin 2.5 g/dL (1.3-4.6) 01/07/23 09:38 Urine Color Yellow (Yellow) 01/07/23 07:56 Urine Appearance Cloudy (CLEAR) A 01/07/23 07:56 Urine pH 6.5 (5-7) 01/07/23 07:56 Ur Specific [place] 1.020 (1.005-1.030) 01/07/23 07:56 Urine Protein 1+ (Negative) H 01/07/23 07:56 Urine Glucose (UA) Norm (Normal) 01/07/23 07:56 Urine Ketones 1+ (Negative) H 01/07/23 07:56 Urine Blood 2+ (Negative) H 01/07/23 07:56 Urine Nitrate Negative (Negative) 01/07/23 07:56 Urine Bilirubin 1+ (Negative) H 01/07/23 07:56 Urine Urobilinogen 1 mg/dL (Negative) H 01/07/23 07:56 Ur Leukocyte Esterase Trace (Negative) H 01/07/23 07:56 Urine RBC 5-10 /hpf (0-2) H 01/07/23 07:56 Urine WBC 0-4 /hpf (0-5) H 01/07/23 07:56 Ur Squamous Epith Cells 0-4 /hpf (0-5) H 01/07/23 07:56 Amorphous Sediment Trace /hpf 01/07/23 07:56 Urine Bacteria 1+ /hpf (NONE) H 01/07/23 07:56 Hyaline Casts 0-4 /lpf H 01/07/23 07:56 Urine Mucus 3+ /hpf 01/07/23 07:56 Discharge Plan Discharge Patient Disposition: Home Clinical Impression: Diverticulitis Syncope Qualifiers: Syncope type: unspecified Qualified Code(s): R55 - Syncope and collapse Condition: Stable Prescriptions: New metronidazole 500 mg tablet 500 mg PO BID 7 Days Qty: 14 0RF Cipro 500 mg tablet 500 mg PO Q12H Qty: 14 0RF No Action nitroglycerin [Nitrostat] 0.4 mg tablet, sublingual 0.4 mg sublingual Q5M PRN (Reason: chest pain) Qty: 30 3RF Rx Instructions: do not exceed 3 doses per episode Lipitor 40 mg tablet 40 mg PO QPM clopidogrel 75 mg tablet 75 mg PO BEDTIME Adult Aspirin Regimen 81 mg tablet,delayed release (DR/EC) 81 mg PO QAM metoprolol succinate 25 mg tablet extended release 24 hr 12.5 mg PO QPM lisinopril 2.5 mg tablet 2.5 mg PO QAM Discharge Orders: Discharge ED (Routine); Ordered 01/07/23 Ordered By: Gerda Knight Referrals: Rell Rosas DO [Primary Care Provider] - Patient Instructions: Diverticulitis (DC), Syncope (DC) Activity Restrictions/Additional Instructions: As we discussed begin your antibiotics immediately for your diverticulitis. Liquid diet over the next 48 to 72 hours and slowly advance as tolerated. You may return to the emergency department for worsening abdominal pain, bloody diarrhea, fevers, inability to hold down your antibiotics, or any other concerns you may have. As we discussed your cardiac work-up appeared benign today. You need to return to the emergency department for any further syncopal episodes, chest pain, shortness of breath, difficulty breathing, palpitations or racing heart rate, or any other concerns you may have. I hope you begin to feel better soon. Coding Level of Care Code ED Cardiac Cath Technician for Cintia Pastor
--- NOTE | 2023-01-07 08:04 | ECG_ITS ---
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 Measurements Intervals [place] Rate: 68 P: 52 MI: 150 QRS: -19 QRSD: 123 T: 151 QT: 402 QTc: 428 Interpretive Statements SINUS RHYTHM SEPTAL MYOCARDIAL INFARCTION , OF INDETERMINATE AGE [40+ ms Q WAVE IN V1/V2] MODERATE T-WAVE ABNORMALITY, CONSIDER LATERAL ISCHEMIA [-0.1+ mV T-WAVE IN I/aVL/V5/V6] Compared to ECG 09/05/2020 13:17:11 T-wave abnormality now present Possible ischemia now present Myocardial infarct finding still present Electronically Signed On 01-07-2023 9:17:29 CDT by Frieda Deng M.D. [email or web address]
--- NOTE | 2023-01-07 08:20 | PC.PHAR ---
pt states he takes care of his own medications-pt states he takes metoprolol succinate er 25mg takes 12.5mg qpm rx written on 11/11/22 for 25mg daily-pt states his brilinta 90mg bid was dced pt states not taken for a year josr main states last filled 10/07/21-
[2023-01-07 08:36] LABS: Bilirubin Urine 1+ (Negative); Blood Urine 2+ (Negative); Glucose Urine UA Norm (Normal); Ketones Urine 1+ (Negative); Nitrate Urine Negative (Negative); Protein Urine 1+ (Negative); Urine Appearance Cloudy (CLEAR); Urine Color Yellow (Yellow); pH Urine 6.5 (5-7)
[2023-01-07 08:37] LABS: Add Urine Microscopic? YES; Amorphous Sediment Urine TRACE /hpf; Bacteria Urine 1+ /hpf; Hyaline Casts Urine 0-4 /lpf; Leukocyte Esterase Urine Trace (Negative); Mucus Urine 3+ /hpf; Squamous Epithelial Cell Urine 0-4 /hpf (0-5); Urobilinogen Urine 1 mg/dL (Negative); WBC Urine 0-4 /hpf (0-5)
[2023-01-07 08:38] LABS: Add Urine Culture? No
--- NOTE | 2023-01-07 09:02 | CT_ITS ---
WS: [id number] CT ABDOMEN AND PELVIS NONCONTRAST HISTORY: L lower pain, hematuria TECHNIQUE: Imaging performed through the abdomen and pelvis. Coronal and sagittal reformats are submi tted. All CT scans at [facility] use at least one of these dose optimization techniques: auto mated exposure control; mA and/or kV adjustment per patient size (includes targeted exams where dose is matched to clinical indication); or iterative reconstruction. DLP: 611.83 mGy.cm COMPARISON: None available. Lower thorax: Lung bases are clear. Visualized heart is normal. Moderate hiatal hernia. Liver: Normal size liver. No mass or bile duct dilatation. Gallbladder: Normal gallbladder. No pericholecystic fluid or cholelithiasis. No gallbladder wall thic kening. Pancreas: Normal size and attenuation. Normal pancreatic duct. No pancreatitis or mass. Spleen: Normal. Adrenal glands: Normal. No mass. Right kidney: Normal size kidney with no mass or hydronephrosis. Left kidney: Normal size kidney with no mass or hydronephrosis. Aorta: Normal abdominal aorta, no aneurysm or atherosclerosis. No free fluid, intraperitoneal air or significant lymphadenopathy. GI tract: Mild acute diverticulitis involving the distal colon towards the sigmoid. Short segment are a of inflammation with submucosal edema. There is additional pericolonic induration in edema but no a bscess. There are additional diverticular changes in the sigmoid without acute diverticulitis. Normal appendix. No small bowel obstruction. Abdominal wall: Negative. No hernia. Pelvis: Increased fecal material in the rectum. No free fluid or adenopathy. Inguinal canals are rios nt bilaterally. Osseous structures: Unremarkable. IMPRESSION: 1. Acute diverticulitis involving a short segment of the distal descending colon. No abscess or free air. 2. Additional moderate sigmoid diverticular burden without acute diverticulitis. 3. No renal stones.
[2023-01-07 09:45] LABS: Basophils % 0.2 %; Eosinophils % 0.2 %; Hematocrit 49.9 % (37-53); Lymphocytes # 0.8 10^3/uL (0.8-4.8); Mean Corpuscular HGB Conc 34.1 g/dL (30-55); Mean Corpuscular Hemoglobin 29.9 pg (27-33); Mean Corpuscular Volume 87.9 fl (82-101); Mean Platelet Volume 9.4 fL (7.4-10.4); Monocytes # 0.6 10^3/uL (0.2-0.9); Monocytes % 4.9 %; Neutrophils # 11.06 10^3/uL (1.8-7.7); Nucleated Red Blood Cells % 0 %; Platelet Count 163 10^3/cmm (157-399); Red Blood Count 5.68 10^6/uL (3.85-5.65); Red Cell Distribution Width 12.6 % (12.1-15.1); White Blood Count 12.57 10^3/uL (3.29-11.43)
--- NOTE | 2023-01-07 09:50 | ECG_ITS ---
[facility] Test Date: 2023-01-07 Pat Name: Raymundo Egan Department: Room: Gender: Male Busser: : 1955 Requested By: Gerda Knight Order Number: [id number] Michael MD: Frieda eDng M.D. Measurements Intervals [place] Rate: 67 P: 55 CO: 147 QRS: -24 QRSD: 138 T: 155 QT: 404 QTc: 428 Interpretive Statements SINUS RHYTHM INTRAVENTRICULAR CONDUCTION DELAY [130+ ms QRS DURATION] SEPTAL MYOCARDIAL INFARCTION , OF INDETERMINATE AGE [40+ ms Q WAVE IN V1/V2] MODERATE T-WAVE ABNORMALITY, CONSIDER LATERAL ISCHEMIA Compared to ECG 01/07/2023 08:04:21 Intraventricular conduction delay now present Myocardial infarct finding still present Electronically Signed On 01-07-2023 13:03:41 CDT by Frieda Deng M.D. [id number]
[2023-01-07 10:07] LABS: Alanine Aminotransferase 23 U/L (0-41); Albumin Level 4.9 g/dL (3.5-5.2); Alkaline Phosphatase 124 U/L (40-130); Anion Gap 14.3 (5-19); Aspartate Amino Transferase 21 U/L (0-40); Blood Urea Nitrogen 13 mg/dL (8-23); Calcium 9.6 mg/dL (8.5-10.5); Carbon Dioxide 28 mmol/L (22-29); Chloride 97 mmol/L (98-107); Globulin 2.5 g/dL (1.3-4.6); Glomerular Filtration Rate 84.2 mL/min (90-130); Glucose 127 mg/dL (65-115); Osmolality Calculated 282 mOsm/kg (285-295); Potassium 4.3 mmol/L (3.5-5.1); Sodium 135 mmol/L (136-145); Total Bilirubin 0.9 mg/dL (0.15-1.2); Total Protein 7.4 g/dL (6.6-8.7); Troponin(5th) Baseline 14 ng/L (0-15)
[2023-01-07 12:40] LABS: Troponin 5 2HR 11.29 ng/L (0-15); Troponin 5 2HR Delta -2.71 ABS# (0-10)
== END 2023-01-07 12:57 | disposition home or self-care (01) ==
PROVIDERS: Emergency Provider Physician Assistant; PCP Family Medicine
DX: R55 Syncope and collapse (principal); K57.92 Diverticulitis of intestine, part unspecified, without perforation or abscess without bleeding; Z79.82 Long term (current) use of aspirin; Z79.02 Long term (current) use of antithrombotics/antiplatelets; I25.10 Atherosclerotic heart disease of native coronary artery without angina pectoris; I10 Essential (primary) hypertension; E78.5 Hyperlipidemia, unspecified; I25.2 Old myocardial infarction
CPT/HCPCS: 71045; 74176; 80053; 81001; 84484; 85025; 93005; 99285

== ENCOUNTER → 2023-11-03 10:47 | Outpatient (BNVA) | payer MEDICARE, SELFPAY | PROVIDERS: PCP Family Medicine; Visit Provider Internal Medicine Cardiovascular Disease | DX: I25.119 Atherosclerotic heart disease of native coronary artery with unspecified angina pectoris (principal); Z95.5 Presence of coronary angioplasty implant and graft; I10 Essential (primary) hypertension | CPT/HCPCS: 99213 ==

== ENCOUNTER → 2024-12-05 09:15 | Outpatient (BNVA) | payer MEDICARE, SELFPAY | PROVIDERS: PCP Family Medicine; Visit Provider Internal Medicine Cardiovascular Disease | DX: I25.10 Atherosclerotic heart disease of native coronary artery without angina pectoris (principal); Z95.5 Presence of coronary angioplasty implant and graft; I10 Essential (primary) hypertension | CPT/HCPCS: 99214 ==

== ENCOUNTER → 2025-02-06 08:15 | Outpatient (BNVA) | payer MEDICARE, SELFPAY | PROVIDERS: PCP Family Medicine; Visit Provider Family Medicine | DX: I25.119 Atherosclerotic heart disease of native coronary artery with unspecified angina pectoris (principal); E03.9 Hypothyroidism, unspecified; E11.9 Type 2 diabetes mellitus without complications; R35.1 Nocturia | CPT/HCPCS: 80053; 80061; 82043; 83036; 84153; 84439; 84443; 85025 ==

== ENCOUNTER → 2025-02-25 07:51 | Outpatient (BNVA) | payer MEDICARE, SELFPAY | PROVIDERS: PCP Family Medicine; Visit Provider Nurse Practitioner Family | DX: D23.72 Other benign neoplasm of skin of left lower limb, including hip (principal); L82.1 Other seborrheic keratosis; D18.01 Hemangioma of skin and subcutaneous tissue; L81.4 Other melanin hyperpigmentation; L57.8 Other skin changes due to chronic exposure to nonionizing radiation; L57.0 Actinic keratosis | CPT/HCPCS: 17000; 99203 ==

== ENCOUNTER → 2025-02-27 12:44 | Outpatient (BNVA) | payer MEDICARE, SELFPAY | PROVIDERS: PCP Family Medicine; Visit Provider Dermatology | DX: D22.4 Melanocytic nevi of scalp and neck (principal); R23.8 Other skin changes; R20.8 Other disturbances of skin sensation | CPT/HCPCS: 11306 ==